=== PATIENT | male | born 1950 | race Caucasian/White ===

== ENCOUNTER 2018-01-23 19:58 | Inpatient (IN) ==
[2018-01-23 20:29] LABS: Baso % (Auto) 0.2 % (0.0-2.0); Eos % (Auto) 0.1 % (0.0-4.0); Hematocrit 46.5 % (39.0-51.0); Hemoglobin 16.2 gm/dL (13.0-17.0); Lymph # (Auto) 0.7 th/mm3 (1.0-4.8); Lymph % (Auto) 6.8 % (9.0-44.0); Mean Corpuscular HGB Conc 34.8 % (32.0-36.0); Mean Corpuscular Hemoglobin 29.9 pg (27.0-34.0); Mean Corpuscular Volume 85.8 fL (80.0-100.0); Mean Platelet Volume 9.3 fL (7.0-11.0); Mono # (Auto) 1.7 th/mm3 (0.0-0.9); Mono % (Auto) 16.3 % (0.0-8.0); Neut # (Auto) 7.9 th/mm3 (1.8-7.7); Neut % (Auto) 76.6 % (16.0-70.0); Platelet Count 408 th/mm3 (150-450); Red Blood Count 5.42 mil/mm3 (4.50-5.90); Red Cell Distribution Width 13.9 % (11.6-17.2); White Blood Count 10.3 th/mm3 (4.0-11.0)
[2018-01-23 20:38] LABS: Chloride 96 meq/L (98-107); Potassium 3.8 meq/L (3.5-5.1); Sodium 132 meq/L (136-145)
[2018-01-23 20:43] LABS: Activated Partial Thrombo Time 29.9 sec (24.3-30.1); Albumin 2.9 g/dL (3.4-5.0); Anion Gap 16 meq/L (5-15); Calcium 9.1 mg/dL (8.5-10.1); Carbon Dioxide 19.6 meq/L (21.0-32.0); Glucose,Random 173 mg/dL (74-106); INR 1.2 Ratio; Lipase 92 U/L (73-393); Prothrombin Time 12.5 sec (9.8-11.6)
[2018-01-23 20:44] LABS: Blood Urea Nitrogen 66 mg/dL (7-18)
[2018-01-23 20:46] LABS: Alanine Aminotransferase 12 U/L (12-78); Aspartate Aminotransferase 9 U/L (15-37); Glomerular Filtration Rate 17 mL/min (>89)
--- NOTE | 2018-01-23 20:47 | ED ---
HPI General Chief Complaint: Abdominal Pain Stated Complaint: Abd Pain Source: patient Mode of arrival: ambulatory Limitations: no limitations History of Present Illness HPI narrative: 67 years old male complains of abdominal pain, nausea vomiting diarrhea. Patient has history of Crohn's disease. Patient states that has frequent flareup of Crohn's disease. Patient has been seen by Dr. Hong colorectal surgeon for that. Patient states that he started having abdominal pain with nausea vomiting diarrhea a week ago. Patient states the symptoms lasted for about 2-3 days and resolved completely. Patient started having abdominal pain with nausea vomiting diarrhea again since last night. Patient denies any poor appetite. Patient denies any fever chills. Patient states the pain and cramping pain diffuse over the abdomen mostly in the lower abdomen. Patient states the pain started on the lower abdomen with radiation to the upper abdomen. Patient denies any blood or mucus in the stool. Patient denies any back pain. On a scale of 1-10 the pain is 8.Patient states that he was on prednisone and Asacol in the past. MD complaint: abdominal pain Onset (ago): day(s) Pain Consistency: constant Location: diffuse Severity: moderate Severity scale (1-10): 8 Quality: cramping Radiation: epigastric Migration to: epigastric Relieving factors: nothing Exacerbating factors: nothing Associated symptoms: nausea, vomiting and diarrhea Related Data Home Medications Medication Instructions Recorded Confirmed No Known Home Medications 01/23/18 01/23/18 Allergies Allergy/AdvReac Type Severity Reaction Status Date / Time No Known Allergies Allergy Unverified 01/23/18 20:09 Review of Systems Except as stated in HPI: all other systems reviewed are negative [facility] Medical History Medical History Crohn disease (Acute) Surgical History Surgical History No history of previous surgery (Acute) Family History Family History Other COPD (chronic obstructive pulmonary disease) Family history of breast cancer Social History Social History Substance History: Past History (dui) Second Hand Smoke Exposure: No Smoking Status: Current some day smoker Tobacco Type: Cigars How Often Do You Have a Drink Containing Alcohol: 2 to 3 times a week Recent Travel in [facility] within the Last 8 Weeks: No Recent Out of Country Travel within the Last 8 Weeks: No Immunization History Tetanus Immunization: >5 Years Hx Influenza Vaccine This Season: No Exam Narrative Exam Narrative: GENERAL: Well-nourished, well-developed patient. SKIN: Focused skin assessment warm/dry. HEAD: Normocephalic. EYES: No scleral icterus. No injection or drainage. NECK: Supple, trachea midline. No JVD or lymphadenopathy. CARDIOVASCULAR: Regular rate and rhythm without murmurs, gallops, or rubs. RESPIRATORY: Breath sounds equal bilaterally. No accessory muscle use. GASTROINTESTINAL: Abdomen soft, nondistended. Patient has moderate diffuse tenderness over the abdomen. No rebound tenderness. No mass. MUSCULOSKELETAL: No cyanosis, or edema. BACK: Nontender without obvious deformity. No CVA tenderness. Course Initial Documented Vital Signs Temperature 97.4 F L 01/23/18 20:01 Pulse Rate 96 H 01/23/18 20:01 Respiratory Rate 16 01/23/18 20:01 Blood Pressure 116/67 01/23/18 20:01 Pulse Oximetry 98 01/23/18 20:01 Last Documented Vital Signs Temperature 96.3 F L 01/24/18 16:00 Pulse Rate 71 01/24/18 16:00 Respiratory Rate 16 01/24/18 16:00 Blood Pressure 110/65 01/24/18 16:00 Pulse Oximetry 98 01/24/18 16:00 Medical Decision Making [facility] Narrative Medical decision making narrative: 67 years old male with low abdominal pain with radiation to the upper abdomen. History of Crohn's disease. Patient also has nausea vomiting diarrhea with that. Normal saline solution 1 25 cc an hour. EMS was called. Patient was hypotensive. Patient was given IV fluid with good results. Normal saline solution 1 L IV bolus. Pepcid 20 mg IV. Zofran 4 mg ODT. Differential Diagnosis Differential Diagnosis: Differential diagnosis including acute exacerbation Crohn's disease, colitis, UTI, pyelonephritis, nephrolithiasis. Lab Data Result diagrams: 01/24/18 05:40 01/24/18 05:40 Lab Results 01/23/18 01/23/18 01/23/18 Range/Units 20:15 20:15 20:15 CBC w Diff Auto diff final WBC 10.3 (4.0-11.0) th/mm3 RBC 5.42 (4.50-5.90) mil/mm3 Hgb 16.2 (13.0-17.0) gm/dL Hct 46.5 (39.0-51.0) % MCV 85.8 (80.0-100.0) fL MCH 29.9 (27.0-34.0) pg MCHC 34.8 (32.0-36.0) % RDW 13.9 (11.6-17.2) % Plt Count 408 (150-450) th/mm3 MPV 9.3 (7.0-11.0) fL Neut % (Auto) 76.6 H (16.0-70.0) % Lymph % (Auto) 6.8 L (9.0-44.0) % [place] % (Auto) 16.3 H (0.0-8.0) % Eos % (Auto) 0.1 (0.0-4.0) % Baso % (Auto) 0.2 (0.0-2.0) % Neut # (Auto) 7.9 H (1.8-7.7) th/mm3 Lymph # (Auto) 0.7 L (1.0-4.8) th/mm3 [place] # (Auto) 1.7 H (0.0-0.9) th/mm3 Eos # (Auto) 0.0 (0.0-0.4) th/mm3 Baso # (Auto) 0.0 (0.0-0.2) th/mm3 WBC Differential . PT 12.5 H (9.8-11.6) sec INR 1.2 Ratio APTT 29.9 (24.3-30.1) sec Sodium 132 L (136-145) meq/L Potassium 3.8 (3.5-5.1) meq/L Chloride 96 L (98-107) meq/L Carbon Dioxide 19.6 L (21.0-32.0) meq/L Anion Gap 16 H (5-15) meq/L BUN 66 H (7-18) mg/dL Creatinine 3.70 H (0.60-1.30) mg/dL Estimated GFR 17 L (>89) mL/min Random Glucose 173 H (74-106) mg/dL Calcium 9.1 (8.5-10.1) mg/dL Total Bilirubin 0.6 (0.2-1.0) mg/dL AST 9 L (15-37) U/L ALT 12 (12-78) U/L Alkaline Phosphatase 87 (45-117) U/L Total Protein 8.4 H (6.4-8.2) g/dL Albumin 2.9 L (3.4-5.0) g/dL Lipase 92 (73-393) U/L Urine Color (Yellw/Straw) Urine Clarity (Clear) Urine pH (5.0-8.5) Ur Specific Marshall (1.002-1.035) Urine Protein (Neg-Trace) mg/dL Urine Glucose (UA) (Negative) mg/dL Urine Ketones (Negative) mg/dL Urine Occult Blood (Negative) Urine Nitrate (Negative) Urine Bilirubin (Negative) Urine Urobilinogen (Less than 2) mg/dL Ur Leukocyte Esterase (Negative) Urine RBC (0-3) /hpf Urine WBC (0-5) /hpf Ur Squamous Epith Cells (0-5) /hpf Urine Bacteria (None) /hpf Micro UA Comment Urine Culture Comments 01/24/18 01/24/18 01/24/18 Range/Units 03:00 05:40 05:40 CBC w Diff Auto diff final WBC 12.2 H (4.0-11.0) th/mm3 RBC 5.26 (4.50-5.90) mil/mm3 Hgb 15.5 (13.0-17.0) gm/dL Hct 46.0 (39.0-51.0) % MCV 87.6 (80.0-100.0) fL MCH 29.4 (27.0-34.0) pg MCHC 33.6 (32.0-36.0) % RDW 13.5 (11.6-17.2) % Plt Count 419 (150-450) th/mm3 MPV 8.8 (7.0-11.0) fL Neut % (Auto) 81.6 H (16.0-70.0) % Lymph % (Auto) 7.9 L (9.0-44.0) % [place] % (Auto) 9.5 H (0.0-8.0) % Eos % (Auto) 0.1 (0.0-4.0) % Baso % (Auto) 0.9 (0.0-2.0) % Neut # (Auto) 9.9 H (1.8-7.7) th/mm3 Lymph # (Auto) 1.0 (1.0-4.8) th/mm3 [place] # (Auto) 1.2 H (0.0-0.9) th/mm3 Eos # (Auto) 0.0 (0.0-0.4) th/mm3 Baso # (Auto) 0.1 (0.0-0.2) th/mm3 WBC Differential . PT (9.8-11.6) sec INR Ratio APTT (24.3-30.1) sec Sodium 132 L (136-145) meq/L Potassium 3.9 (3.5-5.1) meq/L Chloride 96 L (98-107) meq/L Carbon Dioxide 24.2 (21.0-32.0) meq/L Anion Gap 12 (5-15) meq/L BUN 69 H (7-18) mg/dL Creatinine 3.70 H (0.60-1.30) mg/dL Estimated GFR 17 L (>89) mL/min Random Glucose 119 H (74-106) mg/dL Calcium 9.2 (8.5-10.1) mg/dL Total Bilirubin 0.4 (0.2-1.0) mg/dL AST 9 L (15-37) U/L ALT 11 L (12-78) U/L Alkaline Phosphatase 88 (45-117) U/L Total Protein 8.5 H (6.4-8.2) g/dL Albumin 3.0 L (3.4-5.0) g/dL Lipase (73-393) U/L Urine Color Sonia H (Yellw/Straw) Urine Clarity Slightly cloudy (Clear) Urine pH 5.0 (5.0-8.5) Ur Specific [place] Greater/equal 1.030 (1.002-1.035) Urine Protein 30 H (Neg-Trace) mg/dL Urine Glucose (UA) Negative (Negative) mg/dL Urine Ketones Trace (Negative) mg/dL Urine Occult Blood Negative (Negative) Urine Nitrate Negative (Negative) Urine Bilirubin Negative (Negative) Urine Urobilinogen 0.2 (Less than 2) mg/dL Ur Leukocyte Esterase Negative (Negative) Urine RBC 0-3 (0-3) /hpf Urine WBC 5-8 H (0-5) /hpf Ur Squamous Epith Cells 0-5 (0-5) /hpf Urine Bacteria Occasional H (None) /hpf Micro UA Comment Culture not ind Urine Culture Comments Culture not ind Imaging Data Attestation: I personally reviewed and interpreted this imaging study as follows : Radiologist's impression: ITS Impressions Abdomen/Pelvis CT 01/23/18 20:12 CONCLUSION: 1. 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 The largest nodular mass measures 5.5 x 2.0 cm and is located centrally. 2. Evidence of possible circumferential mass in the region of the cecum raising the possibility of colonic neoplasm. Colonoscopy is recommended for further evaluation of this finding. 3. Evidence of diffuse colonic wall thickening with loss of haustrations suggesting probable chronic colitis related to inflammatory bowel disease. Differential diagnosis includes ulcerative colitis and Crohn's disease. 4. 1.6 cm right renal cyst. 5. Degenerative changes and scoliosis of the thoracolumbar spine. Discharge Plan Discharge Disposition Patient Disposition: 30 Still Patient Discharge Details Discharge Problem: Colonic mass, Acute kidney injury, Exacerbation of Crohn's disease Physicians Team ED Provider: Vignesh Bass Primary Care Provider: Primary Care Shari Benavides Attending Provider: Katrin Mireles Discharge Interventions Interventions: ED Discharge Assessment Last Done: 01/24/18 02:50 Vital Signs Last Done: 01/24/18 02:50 Status ED Status: Left Department Discharge Information Discharge Date/Time: 01/24/18 02:50
[2018-01-23 20:48] LABS: Total Protein 8.4 g/dL (6.4-8.2)
[2018-01-23 20:49] LABS: Alkaline Phosphatase 87 U/L (45-117)
[2018-01-24] MEDS ORDERED: Acetaminophen 325 MG Tablet PO PRN (00:32)
[2018-01-24] MEDS ORDERED: Bisacodyl 10 MG Supp RECTAL PRN (00:32)
[2018-01-24] MEDS ORDERED: Morphine Sulfate Inj 2 MG/ML Vial IV.PUSH PRN (00:34)
[2018-01-24 03:25] LABS: Clarity,Urine Slightly Cloudy (Clear); Glucose,Urine (UA) Negative (Negative); Leukocyte Esterase,Urine Negative (Negative); Nitrite,Urine Negative (Negative); Specific Gravity,Urine Greater/Equal 1.030 (1.002-1.035); Urobilinogen,Urine 0.2 mg/dL (Less than 2)
[2018-01-24 03:26] LABS: Bilirubin,Urine Negative (Negative); Color,Urine Amber (Yellw/Straw)
[2018-01-24 03:29] LABS: Bacteria,Urine Occasional /hpf; RBC,Urine 0-3 /hpf (0-3); Squamous Epithelial Cell,Urine 0-5 /hpf (0-5)
[2018-01-24] MEDS: Sod Chloride 0.9% Inj 1,000 ML IV.CONT SCH ×3 (03:33→21:25)
[2018-01-24 05:56] LABS: Baso # (Auto) 0.1 th/mm3 (0.0-0.2); Baso % (Auto) 0.9 % (0.0-2.0); Eos % (Auto) 0.1 % (0.0-4.0); Hemoglobin 15.5 gm/dL (13.0-17.0); Lymph % (Auto) 7.9 % (9.0-44.0); Mean Corpuscular HGB Conc 33.6 % (32.0-36.0); Mean Corpuscular Hemoglobin 29.4 pg (27.0-34.0); Mean Corpuscular Volume 87.6 fL (80.0-100.0); Mean Platelet Volume 8.8 fL (7.0-11.0); Mono # (Auto) 1.2 th/mm3 (0.0-0.9); Mono % (Auto) 9.5 % (0.0-8.0); Neut # (Auto) 9.9 th/mm3 (1.8-7.7); Neut % (Auto) 81.6 % (16.0-70.0); Platelet Count 419 th/mm3 (150-450); Red Blood Count 5.26 mil/mm3 (4.50-5.90); Red Cell Distribution Width 13.5 % (11.6-17.2); White Blood Count 12.2 th/mm3 (4.0-11.0)
[2018-01-24 06:03] LABS: Chloride 96 meq/L (98-107); Potassium 3.9 meq/L (3.5-5.1); Sodium 132 meq/L (136-145)
[2018-01-24 06:06] LABS: Anion Gap 12 meq/L (5-15); Calcium 9.2 mg/dL (8.5-10.1); Carbon Dioxide 24.2 meq/L (21.0-32.0)
[2018-01-24 06:07] LABS: Blood Urea Nitrogen 69 mg/dL (7-18); Glucose,Random 119 mg/dL (74-106)
[2018-01-24 06:09] LABS: Alanine Aminotransferase 11 U/L (12-78)
[2018-01-24 06:10] LABS: Aspartate Aminotransferase 9 U/L (15-37); Glomerular Filtration Rate 17 mL/min (>89)
[2018-01-24 06:11] LABS: Total Protein 8.5 g/dL (6.4-8.2)
[2018-01-24 06:12] LABS: Alkaline Phosphatase 88 U/L (45-117)
[2018-01-24] MEDS: Senna/Docusate Sodium 8.6/50 MG Tablet PO SCH ×2 (09:48→21:29)
--- NOTE | 2018-01-24 11:59 | MB ---
cc: Shauna De Anda MD DATE: 01/24/2018 REASON FOR CONSULTATION: Elevated BUN and creatinine, for evaluation. HISTORY OF PRESENT ILLNESS: This is a 67-year-old male with a past medical history of Crohn's disease who came to the hospital complaining of nausea, vomiting, abdominal pain and loose bowel motion. I was called to see the patient because of elevated BUN and creatinine. The patient was found to have creatinine of 3.7. This was yesterday evening and this morning it is the same at 3.7. Previously it looked like he has a creatinine of 0.98, and this was in 2013. The patient has no labs in between according to him, and he has this history of Crohn's disease and off and on having loose bowel motions. He has been following with Dr. Hong, colorectal surgeon, for that and he was supposed to go for colonoscopy. According to the patient, he had some polyps in the colon. He has loose bowel motions off and on, usually greenish in color. There is no blood in the stool. There is no history of melena. He has nausea, vomiting and not eating well for the last 1 week or so before he came to the hospital and according to the patient, his urine output has decreased and he has been passing very concentrated small amount of urine for the last 1 week. There is no history of fever. He has been taking nonsteroidal anti-inflammatory drugs off and on for joint pain and the last time he took was almost 2 months ago. The patient was taking prednisone and Asacol in the past. MEDICAL HISTORY: Crohn's disease. PAST SURGICAL HISTORY: History of colonoscopy in the past. REVIEW OF SYSTEMS: Denies any history of fever. No headache, dizziness. He has nausea, vomiting, abdominal pain, which is cramping-like and associated with loose bowel motions. There is no history of blood in the stool. He has greenish stool and 5-6 per day. He has no dysuria or hematuria, but did notice that the urine output has decreased and the urine is very concentrated. There is no history of fever. He has been taking nonsteroidal anti-inflammatory drugs off and on for joint pain and the last time he took was almost 2 months ago. SOCIAL HISTORY: The patient is a chronic smoker, smokes cigars and drinks alcohol 2-3 times per week. FAMILY HISTORY: Noncontributory. ALLERGIES: HE HAS NO KNOWN DRUG ALLERGIES. MEDICATIONS: Currently, he is on the following medications: 1. Tylenol p.r.n. 2. Bostwick p.r.n. 3. Dulcolax p.r.n. 4. Reglan p.r.n. 5. Morphine p.r.n. 6. Beatriz-Colace p.r.n. 7. Senokot p.r.n. 8. Normal saline he is getting at 100 an hour. PHYSICAL EXAMINATION: GENERAL: Awake, alert. He is not in acute distress. VITAL SIGNS: His last blood pressure was 111/72, temperature is 97.7. His blood pressure has been in the normal range. There is no documented significant hypotensive episode. Oxygen saturation on room air is 98%. HEENT: Pupils are mid-constricted. Nonicteric sclerae. Conjunctivae are normal. NECK: Supple. JVD is not elevated. LUNGS: The patient has bilateral equal air entry with occasional wheezing. HEART: S1, S2. Regular rate and rhythm. ABDOMEN: Soft and lax. There is some distention. There is no definite tenderness. Bowel sounds positive. EXTREMITIES: There is no pedal edema. LABORATORY DATA: WBC count is 12.2, hemoglobin is 15.5, platelet count of 419, neutrophils 81.6%. INR is 1.2. Sodium 132, potassium 3.9, chloride 96, bicarbonate 24.2, BUN 69, creatinine 3.7. AST is 9, ALT is 11, alkaline phosphatase 88, total protein is 8.5, albumin is 3.0. Urinalysis showing protein of 30. IMAGING STUDIES: A CT scan of the abdomen and pelvis was done which shows nodularity throughout the omentum with possibility of metastasis. The larger nodular mass is 5.5 x 2 cm and evidence of possible circumferential mass in the region of the cecum, possibility of colonic neoplasm. Diffuse colonic wall thickening. Degenerative changes in the thoracolumbar spine. The kidneys are reported normal in size and shape. No evidence of hydronephrosis. There is a 1.6 cm right renal cyst. Adrenal glands unremarkable. ASSESSMENT AND PLAN: 1. Acute kidney injury. 2. Dehydration. 3. Crohn's disease. 4. Possibility of a colonic neoplasm with metastasis. 5. Degenerative changes of the thoracolumbar spine. The patient has very high BUN and creatinine. The differential diagnosis for acute kidney injury will be either dehydration or possibility of acute tubular necrosis. I will check the urine sodium and osmolality and I agree with continuing IV fluid. GI has been consulted for more workup. The patient was told to avoid nonsteroid anti-inflammatory drugs. Thank you for the consultation and I will follow the patient while he is in the hospital. MD MARSHALL Hyde/JAMAR , 11:33 AM , 11:57 AM
--- NOTE | 2018-01-24 13:43 | P.HPIM ---
History of Present Illness Primary Care Physician: No Primary Care Physician Chief Complaint: Abdominal pain and weight loss History of Present Illness: Patient is a 67-year-old gentleman with a history of Crohn's disease which has been in remission. He presents with 2 weeks of malaise, associated diarrhea nausea and vomiting. He had poor oral intake and noted about a 5-10 pound weight loss in the last 2 weeks with associated abdominal bloating, increased nausea vomiting and belching. He notes no bloody diarrhea. He has not had any issues with the Crohn's in about 3 years although he follows up with his colorectal team sporadically due to remission of disease. He was going to see his surgeon but felt severely dehydrated and dizzy and confused and came to the emergency room by ambulance yesterday. He is found to have acute kidney injury , acidosis and was given hydration early. 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 This is all new for the patient he is admitted to the hospital for further evaluation and treat - Diagnosis (1) Abdominal pain (2) CD (Crohn's disease) (3) YVROSE (acute kidney injury) (4) Dehydration - Inpatient Certification If this patient has been admitted as an Inpatient: I certify that the inpatient services were ordered in accordance with Medicare regulations governing the order. This includes certification that hospital inpatient services are reasonable and necessary and in the case of services not specified as inpatient-only under 42 CFR 419.22(n), that they are appropriately provided as inpatient services in accordance to with the 2-midnight benchmark under 43 CFR 412.3(e) Estimated Total Length of Stay (Days): 2 Plans for Post Hospital Care: Not yet determined Review of Systems All other systems reviewed negative except as stated in HPI Constitutional: Reports anorexia, Reports fatigue, Reports malaise, Reports weight loss Eyes: Denies blind spots, Denies blurry vision, Denies bulging eyes, Denies change in vision, Denies double vision, Denies discharge, Denies dry eyes, Denies floaters, Denies irritation, Denies itchy eyes, Denies loss of vision, Denies pain, Denies requires corrective lenses, Denies sensitivity to light, Denies other Ears, Nose, Mouth, and Throat: Denies abnormal hearing, Denies bleeding gums, Denies bad breath, Denies change in voice, Denies dental pain, Denies difficulty swallowing, Denies dizziness, Denies dry mouth, Denies ear discharge , Denies ear pain, Denies facial pain, Denies headache(s), Denies hearing loss, Denies hoarseness, Denies lip swelling, Denies nosebleed, Denies mouth lesions, Denies mouth pain, Denies nasal congestion, Denies nasal discharge, Denies nasal obstruction, Denies nasal trauma, Denies neck lump, Denies neck pain, Denies nose pain, Denies pain with swallowing, Denies poor balance, Denies post nasal drip, Denies ringing in the ears, Denies sinus pain, Denies sinus pressure , Denies sore throat, Denies throat swelling, Denies tongue swelling, Denies other Cardiovascular: Denies chest pain, Denies chest pain at rest, Denies chest pain with activity, Denies excessive sweating, Denies fainting, Denies fast heart rate, Denies foot swelling, Denies generalized swelling, Denies irregular heart rhythm, Denies leg pain with activity, Denies leg sores, Denies leg swelling, Denies lightheadedness, Denies radiating jaw, neck or arm pain, Denies rapid, pounding, or irregular heartbeat, Denies shortness of breath, Denies shortness of breath with activity, Denies shortness of breath when lying down, Denies shortness of breath causing sudden awakening, Denies slow heart rate, Denies other Respiratory: Denies change in phlegm color, Denies chest congestion, Denies cough, Denies coughing up blood, Denies excessive phlegm production, Denies pain on inspiration, Denies pain with cough, Denies shortness of breath, Denies shortness of breath with activity, Denies snoring, Denies stridor, Denies wheezing, Denies other Gastrointestinal: Reports abdominal pain, Reports belching, Reports change in bowel habits, Reports constant urge to pass stool, Reports feeling full early, Reports heartburn, Reports incontinent of stools Genitourinary: Denies blood in semen, Denies blood in urine, Denies decreased urination, Denies difficulty urinating, Denies difficulty with ejaculations, Denies erectile dysfunction, Denies genital lesions, Denies genital pain, Denies painful urination, Denies side pain, Denies frequent nighttime urination , Denies painful ejaculations, Denies penile discharge, Denies scrotal swelling , Denies testicle lump, Denies testicle pain, Denies urinary frequency, Denies urinary hesitancy, Denies urinary incontinence, Denies urinary urgency, Denies other Musculoskeletal: Denies abnormal walking, Denies back pain, Denies body aches, Denies decreased muscle mass, Denies deformity, Denies joint pain, Denies joint swelling, Denies limited joint movement, Denies loss of height, Denies muscle cramps, Denies muscle weakness, Denies neck pain, Denies numbness, Denies radiating pain into limb, Denies stiffness, Denies tingling, Denies other Skin/Breast: Denies acne, Denies bleeding lesions, Denies boil, Denies breast swelling, Denies breast skin changes, Denies breast pain, Denies breast lump, Denies change in breast shape, Denies change in hair, Denies change in skin color, Denies changing lesions, Denies dry skin, Denies excessive hair growth, Denies hair loss, Denies itching, Denies lesions, Denies nail changes, Denies new lesions, Denies nipple discharge, Denies non-healing lesions, Denies redness , Denies sensitivity to light, Denies rash, Denies skin pain, Denies skin ulcer , Denies sores, Denies stretch leger, Denies unusual bruising, Denies wounds, Denies yellowing of the skin, Denies other Neurologic: Denies abnormal hearing, Denies abnormal movements, Denies abnormal speech, Denies abnormal walking, Denies behavioral changes, Denies burning sensations, Denies confusion, Denies dizziness, Denies fainting, Denies frequent falls, Denies headache(s), Denies lack of coordination, Denies localized weakness, Denies loss of vision, Denies memory loss, Denies numbness, Denies other visual disturbances, Denies radiating pain, Denies restless legs, Denies convulsions, Denies seizure-like activity, Denies sensory deficit, Denies tingling, Denies tingling/numbness/burning sensations, Denies tremor(s), Denies unsteadiness, Denies weakness, Denies other Psychiatric: Denies abnormal sleep pattern, Denies anxiety, Denies behavioral changes, Denies change in appetite, Denies change in sex drive, Denies confusion , Denies depression, Denies difficulty concentrating, Denies hearing things others do not hear, Denies hopelessness, Denies irritability, Denies lack of enjoyment, Denies memory loss, Denies mood swings, Denies panic attacks, Denies paranoia, Denies seeing things others do not see, Denies sensing things others do not sense, Denies tactile hallucinations, Denies thoughts of hurting/killing others, Denies thoughts of hurting/killing yourself, Denies other Endocrine: Denies cold intolerance, Denies excessive sweating, Denies flushing, Denies heat intolerance, Denies increased hunger, Denies increased thirst, Denies increased urination, Denies rapid, pounding, or irregular heartbeat, Denies other Hematologic/Lymphatic: Denies easy bleeding, Denies easy bruising, Denies enlarged lymph nodes, Denies other Allergic/Immunologic: Denies GI upset with certain foods, Denies hives, Denies itchy eyes, Denies lip swelling, Denies seasonal runny nose, Denies throat swelling, Denies tongue swelling, Denies wheezing, Denies other PMFSH - History History Provided By: Patient - Medical History Medical History: Medical History (Last Reviewed 01/24/18 @ 13:29 by Katrin Mireles MD) Crohn disease - Surgical History Surgical History: Surgical History (Last Reviewed 01/24/18 @ 13:29 by Katrin Mireles MD) No history of previous surgery - Family History Family History: Family History (Last Updated 01/24/18 @ 13:29 by Katrin Mireles MD) Other COPD (chronic obstructive pulmonary disease) Family history of breast cancer - Tobacco History Second Hand Smoke Exposure: No Tobacco Use In Past 30 Days: Yes Smoking Status: Current some day smoker Tobacco Type: Cigars - Alcohol History How Often Do You Have a Drink Containing Alcohol: 2 to 3 times a week - Substance Use History Substance History: Past History (dui) - Travel History Recent Travel in the [facility] Within the Last 8 Weeks: No Recent Travel Out of the Country Within the Last 8 Weeks: No - Immunization History Tetanus Immunization: >5 Years Hx Influenza Vaccine This Season: No Medications and Allergies Active Medications: Active Medications Acetaminophen (Tylenol) 650 mg PO Q4H PRN PRN Reason: FEVER/PAIN 1-2 Hydrocodone Bitart/Acetaminophen ([place] 10/325) 1 tab PO Q4H PRN PRN Reason: PAIN 3-5 Al Hydroxide/Mg Hydroxide (Milk Of Magnesia Liq) 30 ml PO Q12H PRN PRN Reason: Mild Constipation Bisacodyl (Dulcolax Supp) 10 mg RECTAL DAILY PRN PRN Reason: SEVERE CONSITIPATION Sodium Chloride (Ns Inj) 1,000 mls @ 100 mls/hr IV.CONT .Q10H [facility] Last Admin: 01/24/18 03:33 Dose: 100 mls/hr Metronidazole/Sodium Chloride (Flagyl 500 Mg Inj) 100 mls @ 100 mls/hr IV.SIG Q8H [place] Ciprofloxacin/Dextrose (Cipro 400 Mg/200 Ml Inj) 400 mg in 200 mls @ 200 mls/ hr IV.SIG Q12H [place] Lactulose (Lactulose Liq) 30 ml PO DAILY PRN PRN Reason: SEVERE CONSITIPATION Metoclopramide HCl (Reglan Inj) 5 mg IV.PUSH Q6HR PRN; Protocol PRN Reason: NAUSEA OR VOMITING Morphine Sulfate (Morphine Inj) 2 mg IV.PUSH Q3H PRN PRN Reason: PAIN 6-10 Senna/Docusate Sodium (Beatriz-Colace) 1 tab PO BID [facility] Last Admin: 01/24/18 09:48 Dose: Not Given Sennosides (Senokot) 17.2 mg PO Q12H PRN PRN Reason: Moderate Constipation Sodium Chloride (Ns Flush) 2 ml IV.FLUSH PRN PRN PRN Reason: FLUSH AFTER USING IV ACCESS Last Admin: 01/24/18 03:33 Dose: 2 ml Allergies Allergy/AdvReac Type Severity Reaction Status Date / Time No Known Allergies Allergy Unverified 01/23/18 20:09 Home Medications Medication Instructions Recorded Confirmed Type No Known Home Medications 01/23/18 01/23/18 History Exam Vital signs: Vital Signs 01/23/18 20:01 01/23/18 20:10 01/23/18 21:23 Temperature 97.4 F L Pulse Rate 96 H 96 H Respiratory Rate 16 18 Blood Pressure 116/67 116/62 Pulse Oximetry 98 95 01/24/18 01:27 01/24/18 02:50 01/24/18 03:49 Temperature 97.7 F Pulse Rate 82 80 Respiratory Rate 20 20 16 Blood Pressure 111/72 123/74 123/78 Pulse Oximetry 98 98 98 01/24/18 08:00 01/24/18 12:00 Temperature 96.2 F L 96.5 F L Pulse Rate 72 73 Respiratory Rate 16 Blood Pressure 104/56 L 139/81 Pulse Oximetry 98 98 Intake & Output 01/23/18 01/24/18 01/24/18 18:59 06:59 18:59 Intake Total 480 / 480 Output Total 800 / 800 Balance -800 / -800 480 / 480 Weight 74.6 kg Intake: Oral 480 / 480 Oral Supplement 0 / 0 Output: Urine 300 / 300 Stool 500 / 500 Other: Date of Last Bowel Movement 01/24/18 # Bowel Movements 4 - Constitutional no acute distress - Routine HEENT Exam Head: Present: normocephalic, atraumatic Eye: Present: EOMI, PERRL - Routine Neck Exam Present: supple, full ROM - Routine Cardiovascular Exam Present: RRR, S1, S2 - Routine Abdominal Exam Present: soft, tenderness, distended - Routine Extremities Exam Present: full ROM, normal capillary refill - Routine Skin Exam Present: intact - Routine Neurological Exam Present: alert, oriented X3, CN II-XII intact Results - Labs CBC & Chem 7: 01/24/18 05:40 01/24/18 05:40 Labs: Short CBC 01/23/18 01/24/18 Range/Units 20:15 05:40 WBC 10.3 12.2 H (4.0-11.0) th/mm3 Hgb 16.2 15.5 (13.0-17.0) gm/dL Hct 46.5 46.0 (39.0-51.0) % Plt Count 408 419 (150-450) th/mm3 [facility] 01/23/18 01/24/18 20:15 05:40 Sodium 132 L 132 L Potassium 3.8 3.9 Chloride 96 L 96 L Carbon Dioxide 19.6 L 24.2 BUN 66 H 69 H Creatinine 3.70 H 3.70 H Calcium 9.1 9.2 Liver Function 01/23/18 01/24/18 Range/Units 20:15 05:40 Total Bilirubin 0.6 0.4 (0.2-1.0) mg/dL AST 9 L 9 L (15-37) U/L ALT 12 11 L (12-78) U/L Alkaline Phosphatase 87 88 (45-117) U/L Albumin 2.9 L 3.0 L (3.4-5.0) g/dL Urine 01/24/18 Range/Units 03:00 Urine Color Sonia H (Yellw/Straw) Urine Clarity Slightly cloudy (Clear) Urine pH 5.0 (5.0-8.5) Ur Specific [place] Greater/equal 1.030 (1.002-1.035) Urine Protein 30 H (Neg-Trace) mg/dL Urine Glucose (UA) Negative (Negative) mg/dL - Imaging Impressions Abdomen/Pelvis CT 01/23/18 20:12 CONCLUSION: 1. 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 The largest nodular mass measures 5.5 x 2.0 cm and is located centrally. 2. Evidence of possible circumferential mass in the region of the cecum raising the possibility of colonic neoplasm. Colonoscopy is recommended for further evaluation of this finding. 3. Evidence of diffuse colonic wall thickening with loss of haustrations suggesting probable chronic colitis related to inflammatory bowel disease. Differential diagnosis includes ulcerative colitis and Crohn's disease. 4. 1.6 cm right renal cyst. 5. Degenerative changes and scoliosis of the thoracolumbar spine. Caprini VTE Risk Assessment Caprini VTE Risk Assessment: Moderate/High Risk (score >= 2) Caprini Risk Assessment Model: Point Value = 1 Point Value = 2 Point Value = 3 Point Value = 5 Age 41-60 Minor surgery BMI > 25 kg/m2 Swollen legs Varicose veins or History of unexplained or recurrent spontaneous Oral contraceptives or hormone replacement Sepsis (< 1 month) Serious lung disease, including pneumonia (< 1 month) Abnormal pulmonary function Acute myocardial infarction Congestive heart failure (< 1 month) History of inflammatory bowel disease Medical patient at bed rest Age 61-74 Arthroscopic surgery Major open surgery (> 45 min) Laparoscopic surgery (> 45 min) Malignancy Confined to bed (> 72 hours) Immobilizing plaster cast Central venous access Age >= 75 History of VTE Family history of VTE Factor V Leiden Prothrombin [id number] Lupus anticoagulant Anticardiolipin antibodies Elevated serum homocysteine Heparin-induced thrombocytopenia Other congenital or acquired thrombophilia Stroke (< 1 month) Elective arthroplasty Hip, pelvis, or leg fracture Acute spinal cord injury (< 1 month) Prophylaxis Regimen: Total Risk Factor Score Risk Level Prophylaxis Regimen 0-1 Low Early ambulation 2 Moderate Order ONE of the following: *Sequential Compression Device (SCD) *Heparin 5000 units SQ BID 3-4 Higher Order ONE of the following medications: *Heparin 5000 units SQ TID *Enoxaparin/Lovenox 40 mg SQ daily (WT < 150 kg, CrCl > 30 mL/min) *Enoxaparin/Lovenox 30 mg SQ daily (WT < 150 kg, CrCl > 10-29 mL/min) *Enoxaparin/Lovenox 30 mg SQ BID (WT < 150 kg, CrCl > 30 mL/min) AND/OR *Sequential Compression Device (SCD) 5 or more Highest Order ONE of the following medications: *Heparin 5000 units SQ TID (Preferred with Epidurals) *Enoxaparin/Lovenox 40 mg SQ daily (WT < 150 kg, CrCl > 30 mL/min) *Enoxaparin/Lovenox 30 mg SQ daily (WT < 150 kg, CrCl > 10-29 mL/min) *Enoxaparin/Lovenox 30 mg SQ BID (WT < 150 kg, CrCl > 30 mL/min) AND *Sequential Compression Device (SCD) Assessment and Plan - Assessment (1) Abdominal pain Code(s): R10.9 - Unspecified abdominal pain Status: Acute Plan: Likely due to colonic malignancy with evidence of metastases. Continue with IV hydration and supportive care Colorectal surgery follow-up (patient does follow with Dr. Hong. Follow-up stool studies and empiric Cipro and Flagyl (2) CD (Crohn's disease) Code(s): K50.90 - Crohn's disease, unspecified, without complications Status: Chronic Plan: Currently stable per patient and his last flare was over 3 years ago. Continue to follow with colorectal (3) YVROSE (acute kidney injury) Code(s): N17.9 - Acute kidney failure, unspecified Status: Acute Plan: Patient with acute metabolic acidosis secondary to acute kidney injury, likely due to dehydration No follow-up appreciated. Continue hydration, acidosis appears to have corrected Follow-up labs, avoid nephrotoxic injuries (4) Dehydration Code(s): E86.0 - Dehydration Status: Acute Plan: Continue IV hydration and follow-up electrolytes - Plan Code Status: Worrisome due to patient's hydration status With electrolyte management and his acidosis is actually improved. Nephrology consult appreciated H&P: Quality - VTE Deep Vein Thrombosis/Pulmonary Embolism Present on Admission: No
[2018-01-24] MEDS: Ciprofloxacin 400 MG/200 ML 400 MG/200 ML PIGGYBACK IV.SIG SCH (15:02)
[2018-01-24] MEDS: Heparin - SQ 10,000 UNITS/ML Vial SQ SCH (21:27)
[2018-01-25] MEDS: Ciprofloxacin 400 MG/200 ML 400 MG/200 ML PIGGYBACK IV.SIG SCH ×2 (01:49→14:26)
[2018-01-25] MEDS: Sod Chloride 0.9% Inj 1,000 ML IV.CONT SCH ×2 (06:45→19:01)
[2018-01-25] MEDS: Heparin - SQ 10,000 UNITS/ML Vial SQ SCH ×2 (10:04→22:11)
[2018-01-25] MEDS: Senna/Docusate Sodium 8.6/50 MG Tablet PO SCH ×2 (10:06→22:11)
--- NOTE | 2018-01-25 11:17 | P.PNIM ---
Subjective Interval history: Patient seen and evaluated today in follow-up for abdominal pain which is improved. Still with loose stool. C. difficile is pending. No fevers. Care plan discussed with patient. Tolerating current antibiotics and diet without difficulty. Physical Exam Vital signs: Vital Signs 01/24/18 12:00 01/24/18 14:00 01/24/18 16:00 Temperature 96.5 F L 96.3 F L Pulse Rate 73 71 Respiratory Rate 16 Blood Pressure 139/81 110/65 Pulse Oximetry 98 99 98 01/24/18 20:00 01/24/18 20:46 01/25/18 00:00 Temperature 95.8 F L 98.0 F Pulse Rate 72 70 Respiratory Rate 18 18 Blood Pressure 130/75 112/68 Pulse Oximetry 97 98 97 01/25/18 08:00 Temperature 96.3 F L Pulse Rate 83 Respiratory Rate 16 Blood Pressure 134/84 Pulse Oximetry 96 Intake & Output 01/24/18 01/25/18 01/25/18 18:59 06:59 18:59 Intake Total 2059 / 2059 2740 / 2740 Output Total 750 / 750 Balance 2059 / 2059 1989 / 1989 Weight 74.6 kg Intake: IV 1100 / 1100 2500 / 2500 NS Inj 1,000 ML @ 100 mls/hr IV 1000 / 1000 2000 / 1999 .CONT .Q10H [place] Rx#:[id number] Cipro 400 MG/200 ML Inj 400 mg 400 / 400 In 200 ml @ 200 mls/hr IV.SIG Q12H [place] Rx#:[id number] Flagyl 500 MG Inj 100 ML @ 100 100 / 100 100 / 100 mls/hr IV.SIG Q8H [place] Rx#: [id number] Oral 960 / 960 240 / 240 Oral Supplement 0 / 0 Output: Urine 750 / 750 Other: # Voids 7 Date of Last Bowel Movement 01/24/18 # Bowel Movements 4 - Constitutional no acute distress - Routine HEENT Exam Head: Present: normocephalic, atraumatic Eye: Present: EOMI, PERRL ENT: Present: mucous membranes moist - Routine Neck Exam Present: supple, full ROM - Routine Respiratory Exam Present: CTA bilaterally - Routine Cardiovascular Exam Present: RRR, S1, S2 - Routine Abdominal Exam Present: soft, normoactive bowel sounds - Routine Neurological Exam Present: alert, oriented X3, CN II-XII intact Results - Labs CBC & Chem 7: 01/24/18 05:40 01/24/18 05:40 Laboratory Results - last 24 hr 01/24/18 01/24/18 22:50 22:50 Urine Osmolality 501 Ur Random Sodium 16 Assessment and Plan - Assessment (1) Abdominal pain Code(s): R10.9 - Unspecified abdominal pain Status: Acute Plan: Likely due to colonic malignancy with evidence of metastases. Continue with IV hydration and supportive care Colorectal surgery follow-up (patient does follow with Dr. Hong. I called directly today as consult was not able to go through the new system.) Follow- up stool studies and empiric Cipro and Flagyl c diff pending (2) CD (Crohn's disease) Code(s): K50.90 - Crohn's disease, unspecified, without complications Status: Chronic Plan: Currently stable per patient and his last flare was over 3 years ago. Continue to follow with colorectal (3) YVROSE (acute kidney injury) Code(s): N17.9 - Acute kidney failure, unspecified Status: Acute Plan: Patient with acute metabolic acidosis secondary to acute kidney injury, likely due to dehydration renal follow-up appreciated. Continue iv hydration, acidosis appears to have corrected Follow-up labs, avoid nephrotoxic injuries (4) Dehydration Code(s): E86.0 - Dehydration Status: Acute Plan: Continue IV hydration and follow-up electrolytes - Plan Discharge Planning: If no inpatient workup will discuss with colorectal surgery for discharge planning outpatient follow-up
[2018-01-25] MEDS ORDERED: Magnesium Citrate Liq 300 ML Bottle PO ONE (18:15)
--- NOTE | 2018-01-25 22:40 | MB ---
cc: Zelalem Alexander MD, Andrew H MD DATE: 01/25/2018 REASON FOR CONSULTATION: Crohn's disease, possible abdominal mass and carcinomatosis. HISTORY OF PRESENT ILLNESS: Mr. Stapleton is a 67-year-old male known to Dr. Hong in the past with a history of Crohn's disease. He has very little medical followup for the last several years and has been off all medications. He presented to the emergency room with about a 2-week history of anorexia, malaise, nausea and vomiting. He always has loose stools he claims up to about 10 times a day. His oral intake was very poor and he was able to take very little even liquids by mouth. Reports about a 10-pound weight loss in 2 weeks with abdominal distention. Denies any fever. No rectal bleeding. Denies any melena. The patient was trying to get into the office for outpatient followup, but was quite lethargic and somewhat dizzy. He called [facility] and came to the emergency room by ambulance. In the emergency room, he was found to be significantly dehydrated with elevation of his BUN and creatinine, acidosis. 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 No signs of ascites. The patient was admitted for IV fluids and extensive workup of multiple medical problems. Please see the admitting history and physical for complete past medical and surgical history. PERTINENT PHYSICAL: GENERAL: A very cachectic older male in no acute distress. HEENT: Remarkable for pink but very dry membranes. Nonicteric sclerae. NECK: Stiff without adenopathy. CHEST: Coarse bilaterally. Clear anteriorly. HEART: Had a slight tachycardia. ABDOMEN: Soft, doughy, slightly tender in the right side but no real obvious masses. No rebound or guarding. No fluid is noted. EXTREMITIES: Show no cyanosis or clubbing. 1+ pedal edema. LABORATORY STUDIES: Hemoglobin was down to 15.5, platelet count was 418,000. Coagulation studies normal. Chemistries show a BUN of 69 with a creatinine of 3.7. Normal liver function tests. IMAGING STUDIES: A CT scan was reviewed showing nodularity in the omentum consistent with omental metastasis with possible mass at the region of the cecum, concern for possible cecal neoplasm. The colonic wall was diffusely thickened distally, also consistent with a history of longstanding colitis. ASSESSMENT AND PLAN: A 67-year-old male with history of Crohn's disease, who presents with severe dehydration, longstanding diarrhea, very poor followup and findings consistent with possible cecal mass and omental metastasis. The patient has not had a drop in his BUN and creatinine despite very gentle fluid hydration. Would increase his hydration and have him undergo a gentle bowel prep in preparation for a colonic evaluation to see the extent of his colonic disease as well as a possible mass at the cecum. Risks, benefits and alternatives were discussed at great length with the patient. We will try to set up as soon as possible. MD NAHUN Lopez/SA , 10:14 PM , 10:38 PM
[2018-01-26 05:11] LABS: Hemoglobin 15.5 gm/dL (13.0-17.0); Mean Corpuscular HGB Conc 33.6 % (32.0-36.0); Mean Corpuscular Hemoglobin 28.8 pg (27.0-34.0); Mean Corpuscular Volume 85.7 fL (80.0-100.0); Mean Platelet Volume 8.4 fL (7.0-11.0); Platelet Count 402 th/mm3 (150-450); Red Blood Count 5.37 mil/mm3 (4.50-5.90); Red Cell Distribution Width 14.2 % (11.6-17.2); White Blood Count 14.9 th/mm3 (4.0-11.0)
[2018-01-26 05:49] LABS: Calcium 9.5 mg/dL (8.5-10.1); Potassium 3.3 meq/L (3.5-5.1)
[2018-01-26] MEDS: Sod Chloride 0.9% Inj 1,000 ML IV.CONT SCH ×4 (07:36→21:18)
[2018-01-26] MEDS: Ciprofloxacin 400 MG/200 ML 400 MG/200 ML PIGGYBACK IV.SIG SCH ×2 (07:41→14:41)
[2018-01-26] MEDS ORDERED: Chlorhexidine Gluconate 2% 1 Pack (2 Cloths) TOPICAL SCH (07:45)
[2018-01-26] MEDS ORDERED: Metoprolol Tartrate 25 MG Tablet PO SCH (07:45)
[2018-01-26] MEDS ORDERED: Sodium Chlor 0.9% Inj 500 ML IV.SIG SCH (08:00)
[2018-01-26] MEDS: Senna/Docusate Sodium 8.6/50 MG Tablet PO SCH (09:17)
--- NOTE | 2018-01-26 09:27 | P.PN ---
Subjective Interval history: Follow-up visit Crohn's disease, increased diarrhea, nausea, vomiting, increased abdominal pain right quadrant. Patient seen and examined today. States he continues to have nausea, slight diarrhea. States he has severe tenderness to light palpation on the right upper/lower quadrant. States nausea vomiting has improved he has not eaten because he was kept n.p.o. for procedure. Denies SOB/ dyspnea. Denies chest pain, palpitations, headaches, dizziness. Denies fevers, chills. Denies dysuria. Physical Exam Vital signs: Vital Signs 01/25/18 12:00 01/25/18 16:00 01/25/18 19:58 Temperature 98.0 F 98.2 F 98.1 F Pulse Rate 75 76 82 Respiratory Rate 17 17 20 Blood Pressure 108/59 L 109/59 L 125/74 Pulse Oximetry 95 95 97 01/25/18 20:26 01/26/18 00:00 01/26/18 03:44 Temperature 98.3 F 98.2 F Pulse Rate 95 H 97 H Respiratory Rate 17 18 Blood Pressure 112/72 110/72 Pulse Oximetry 98 93 L 94 L 01/26/18 08:00 Temperature 98.0 F Pulse Rate 88 Respiratory Rate 16 Blood Pressure 123/84 Pulse Oximetry 94 L Intake & Output 01/25/18 01/26/18 01/26/18 18:59 06:59 18:59 Intake Total 2360 / 2360 1100 / 1100 200 / 200 Output Total 200 / 200 Balance 2160 / 2160 1100 / 1100 200 / 200 Weight 78 kg 79 kg Intake: IV 1400 / 1400 1100 / 1100 200 / 200 NS Inj 1,000 ML @ 150 mls/hr IV 1000 / 1000 1000 / 1000 .CONT .Q6H40M [place] Rx#: [id number] Cipro 400 MG/200 ML Inj 400 mg 200 / 200 200 / 200 In 200 ml @ 200 mls/hr IV.SIG Q12H [place] Rx#:[id number] Flagyl 500 MG Inj 100 ML @ 100 200 / 200 100 / 100 mls/hr IV.SIG Q8H [place] Rx#: [id number] Oral 960 / 960 Output: Urine 200 / 200 Other: # Voids 1 5 Date of Last Bowel Movement 01/25/18 01/26/18 01/26/18 # Bowel Movements 3 5 Weight On Admission 78 kg Narrative: GENERAL: This is a well-nourished, well-developed patient, in no apparent distress. SKIN: Warm and dry. HEENT: Normocephalic. Pupils equal round and reactive. Nose without bleeding. Airway patent. NECK: Trachea midline. No JVD. Supple. CARDIOVASCULAR: Regular rate and rhythm without murmurs, gallops, or rubs. RESPIRATORY: Clear to auscultation. Breath sounds equal bilaterally. No wheezes , rales, or rhonchi. GASTROINTESTINAL: Abdomen soft, distended. Bowel Sounds normoactive x4. Tenderness to very light palpation right quadrant. MUSCULOSKELETAL: Extremities without clubbing, cyanosis, or edema. NEUROLOGICAL: Awake and alert. Oriented to time, place, person. No focal neuro deficit. Moves all extremities. Normal speech. Results - Labs CBC & Chem 7: 01/26/18 04:33 01/26/18 04:33 Laboratory Results - last 24 hr 01/25/18 01/26/18 01/26/18 01:45 04:33 04:33 WBC 14.9 H RBC 5.37 Hgb 15.5 Hct 46.0 MCV 85.7 MCH 28.8 MCHC 33.6 RDW 14.2 Plt Count 402 MPV 8.4 Sodium 134 L Potassium 3.3 L Chloride 93 L Carbon Dioxide 28.0 Anion Gap 13 BUN 38 H Creatinine 1.28 Estimated GFR 56 L Random Glucose 131 H Calcium 9.5 Stl C.difficile Tox PCR Negative St C. 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 Continue with IV hydration and supportive care Colorectal surgery follow-up (patient does follow with Dr. Hong. I called directly today as consult was not able to go through the new system.) Follow- up stool studies and empiric Cipro and Flagyl c diff pending (2) CD (Crohn's disease) Code(s): K50.90 - Crohn's disease, unspecified, without complications Status: Chronic Plan: Currently stable per patient and his last flare was over 3 years ago. Continue to follow with colorectal (3) YVROSE (acute kidney injury) Code(s): N17.9 - Acute kidney failure, unspecified Status: Acute Plan: Patient with acute metabolic acidosis secondary to acute kidney injury, likely due to dehydration renal follow-up appreciated. Continue iv hydration, acidosis appears to have corrected Follow-up labs, avoid nephrotoxic injuries (4) Dehydration Code(s): E86.0 - Dehydration Status: Acute Plan: Continue IV hydration and follow-up electrolytes - Plan Patient is a 67-year-old gentleman with a history of Crohn's disease which has been in remission who presents with 2 weeks of malaise, associated diarrhea nausea and vomiting. Colonic malignancy Crohn's disease, possible flare up Abdominal pain, Right Quadrant -Patient states Crohn's disease flareup usually mild every 6 months when he drinks alcohol. States this now is severe. -CT of the abdomen and pelvis showed . 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 The largest nodular mass measures 5.5 x 2.0 cm and is located centrally. Evidence of possible circumferential mass in the region of the cecum raising the possibility of colonic neoplasm. Colonoscopy is recommended for further evaluation of this finding. Evidence of diffuse colonic wall thickening with loss of haustrations suggesting probable chronic colitis related to inflammatory bowel disease. Differential diagnosis includes ulcerative colitis and Crohn's disease. 1.6 cm right renal cyst. Degenerative changes and scoliosis of the thoracolumbar spine. -Colorectal surgeon consulted, appreciate recommendation. Plan for colonoscopy procedure -Pain management -Zofran/ Reglan as needed Acute kidney injury -Possibly secondary to dehydration -Continue IV fluids for gentle hydration -Avoid nephrotoxins -Monitor BMP DVT prop SCDs
[2018-01-26] MEDS: Hydrocortisone Inj 100 MG in Sodium Chlor 0.9% Inj 100 ML IV.SIG SCH (17:44)
--- NOTE | 2018-01-26 19:20 | P.PN ---
Subjective Interval history: Patient is clinically same , not in distress. Physical Exam Vital signs: Vital Signs 01/25/18 19:58 01/25/18 20:26 01/26/18 00:00 Temperature 98.1 F 98.3 F Pulse Rate 82 95 H Respiratory Rate 20 17 Blood Pressure 125/74 112/72 Pulse Oximetry 97 98 93 L 01/26/18 03:44 01/26/18 08:00 01/26/18 11:52 Temperature 98.2 F 98.0 F 97.7 F Pulse Rate 97 H 88 83 Respiratory Rate 18 16 16 Blood Pressure 110/72 123/84 121/76 Pulse Oximetry 94 L 94 L 97 01/26/18 15:25 01/26/18 15:30 01/26/18 15:45 Temperature 98 F Pulse Rate 75 73 71 Respiratory Rate 16 16 16 Blood Pressure 107/60 107/68 120/76 Pulse Oximetry 97 97 93 L 01/26/18 16:00 01/26/18 16:15 Temperature 98 F Pulse Rate 73 73 Respiratory Rate 16 16 Blood Pressure 117/73 117/73 Pulse Oximetry 98 96 Intake & Output 01/26/18 01/26/18 01/27/18 06:59 18:59 06:59 Intake Total 1100 / 1100 2200 / 2200 Balance 1100 / 1100 2200 / 2200 Weight 79 kg Intake: IV 1100 / 1100 1900 / 1900 NS Inj 1,000 ML @ 150 mls/hr IV 1000 / 1000 1000 / 1000 .CONT .Q6H40M [place] Rx#: [id number] Cipro 400 MG/200 ML Inj 400 mg 600 / 600 In 200 ml @ 200 mls/hr IV.SIG Q12H [place] Rx#:[id number] SoluCORTEF Inj 100 MG In NS Inj 100 / 100 100 ML @ 200 mls/hr IV.SIG Q8H [place] Rx#:[id number] Flagyl 500 MG Inj 100 ML @ 100 100 / 100 200 / 200 mls/hr IV.SIG Q8H [place] Rx#: [id number] Anesthesia Amount 300 / 300 Other: # Voids 5 Date of Last Bowel Movement 01/26/18 01/26/18 # Bowel Movements 5 Narrative: GENERAL: This is a thin appearing, well-developed patient, in no apparent distress. SKIN: Warm and dry. CARDIOVASCULAR: Regular rate and rhythm without murmurs, gallops, or rubs. RESPIRATORY: Rhonchi noted right lung. Breath sounds equal bilaterally. GASTROINTESTINAL: Abdomen bowel Sounds hypoactive. Ostomy in place, stoma pink with stool. MUSCULOSKELETAL: Extremities without clubbing, cyanosis, or edema. NEUROLOGICAL: Awake and alert. Oriented to place, person. No focal neuro deficit. Moves all extremities. Normal speech. - Urinary Catheter Management Indwelling Urethral Catheter Cath placed during this visit: yes, but has since been removed by the nurse Reason for continuing: Decision to DC catheter Insertion date: 01/30/18 Insertion time: 08:05 Removal date: 02/01/18 Removal time: 13:30 Results - Labs CBC & Chem 7: 02/02/18 08:15 02/04/18 05:53 Laboratory Results - last 24 hr 01/26/18 01/26/18 04:33 04:33 WBC 14.9 H RBC 5.37 Hgb 15.5 Hct 46.0 MCV 85.7 MCH 28.8 MCHC 33.6 RDW 14.2 Plt Count 402 MPV 8.4 Sodium 134 L Potassium 3.3 L Chloride 93 L Carbon Dioxide 28.0 Anion Gap 13 BUN 38 H Creatinine 1.28 Estimated GFR 56 L Random Glucose 131 H Calcium 9.5 Microbiology 01/25/18 01:45 Stool Stool for WBCs - Final Moderate WBC'S Assessment and Plan - Attending Attestation - Assessment (1) YVROSE (acute kidney injury) Code(s): N17.9 - Acute kidney failure, unspecified Status: Acute Plan: Acute kidney injury with acidosis most likely prerenal from dehydration with urine osmolarity of 501 Creatinine is stable at 1.28 . Avoid nephrotoxic agents including NSAIDS, IV contrast and aminoglycoside. On IVF fluids can be discontinued if patient good oral intake Continue antibiotics Follow the urine out put and BMP. (2) Abdominal pain Code(s): R10.9 - Unspecified abdominal pain Status: Acute Plan: Improved, On antibiotics, GI and general surgery.
--- NOTE | 2018-01-26 21:38 | ECG ---
Date Performed: 01/26/2018 Time Performed: 08:12:39 PTAGE: 67 years EKG: Sinus rhythm ABNORMAL R WAVE PROGRESSION BORDERLINE ECG PREVIOUS TRACING : 01/28/1993 16.42 Compared to previous tracing, abnormal R wave progression present DOCTOR: Edie Leo Interpretating Date/Time 01/26/2018 21:37:55
[2018-01-27] MEDS: Hydrocortisone Inj 100 MG in Sodium Chlor 0.9% Inj 100 ML IV.SIG SCH ×3 (02:03→16:01)
[2018-01-27] MEDS: Sod Chloride 0.9% Inj 1,000 ML IV.CONT SCH ×4 (02:54→14:12)
[2018-01-27] MEDS: Ciprofloxacin 400 MG/200 ML 400 MG/200 ML PIGGYBACK IV.SIG SCH ×2 (02:56→14:16)
[2018-01-27 10:19] LABS: Baso # (Auto) 0.1 th/mm3 (0.0-0.2); Baso % (Auto) 0.7 % (0.0-2.0); Hematocrit 39.5 % (39.0-51.0); Lymph # (Auto) 0.6 th/mm3 (1.0-4.8); Lymph % (Auto) 3.1 % (9.0-44.0); Mean Corpuscular HGB Conc 32.9 % (32.0-36.0); Mean Corpuscular Hemoglobin 29.3 pg (27.0-34.0); Mean Corpuscular Volume 89.1 fL (80.0-100.0); Mean Platelet Volume 9.1 fL (7.0-11.0); Mono # (Auto) 0.7 th/mm3 (0.0-0.9); Mono % (Auto) 3.7 % (0.0-8.0); Neut # (Auto) 17.1 th/mm3 (1.8-7.7); Neut % (Auto) 92.5 % (16.0-70.0); Platelet Count 333 th/mm3 (150-450); Red Blood Count 4.43 mil/mm3 (4.50-5.90); Red Cell Distribution Width 14.6 % (11.6-17.2); White Blood Count 18.5 th/mm3 (4.0-11.0)
--- NOTE | 2018-01-27 11:16 | P.PNNP ---
Subjective Interval history: Reports reports chronic shortness, and cramps. <Marycruz Ramos - Last Filed: 01/27/18 11:00> Physical Exam Vital signs: Vital Signs 01/26/18 11:52 01/26/18 15:25 01/26/18 15:30 Temperature 97.7 F 98 F Pulse Rate 83 75 73 Respiratory Rate 16 16 16 Blood Pressure 121/76 107/60 107/68 Pulse Oximetry 97 97 97 01/26/18 15:45 01/26/18 16:00 01/26/18 16:15 Temperature 98 F Pulse Rate 71 73 73 Respiratory Rate 16 16 16 Blood Pressure 120/76 117/73 117/73 Pulse Oximetry 93 L 98 96 01/26/18 16:40 01/26/18 19:21 01/26/18 23:38 Temperature 98 F 97.8 F 97.6 F Pulse Rate 81 83 75 Respiratory Rate 16 18 18 Blood Pressure 123/56 L 121/62 124/65 Pulse Oximetry 93 L 95 97 01/27/18 08:00 Temperature 97.3 F L Pulse Rate 66 Respiratory Rate 17 Blood Pressure 144/70 H Pulse Oximetry 97 Intake & Output 01/26/18 01/27/18 01/27/18 18:59 06:59 18:59 Intake Total 2200 / 2200 1200 / 1200 1400 / 1400 Balance 2200 / 2200 1200 / 1200 1400 / 1400 Weight 79 kg Intake: IV 1900 / 1900 1200 / 1200 1400 / 1400 NS Inj 1,000 ML @ 75 mls/hr IV. 1000 / 1000 1000 / 1000 1000 / 1000 CONT .[id number] [place] Rx#: [id number] Cipro 400 MG/200 ML Inj 400 mg 600 / 600 200 / 200 In 200 ml @ 200 mls/hr IV.SIG Q12H [place] Rx#:[id number] SoluCORTEF Inj 100 MG In NS Inj 100 / 100 100 / 100 100 / 100 100 ML @ 200 mls/hr IV.SIG Q8H [place] Rx#:[id number] Flagyl 500 MG Inj 100 ML @ 100 200 / 200 100 / 100 100 / 100 mls/hr IV.SIG Q8H [place] Rx#: [id number] Oral 0 / 0 Anesthesia Amount 300 / 300 Other: # Voids 4 Date of Last Bowel Movement 01/26/18 01/26/18 # Bowel Movements 0 - Constitutional no acute distress, cooperative - Routine HEENT Exam Head: Present: normocephalic - Routine Neck Exam Present: supple. Absent: JVD - Routine Respiratory Exam Present: CTA bilaterally. Absent: rales, rhonchi, crackles - Routine Cardiovascular Exam Present: RRR. Absent: murmur - Routine Abdominal Exam Present: soft, normoactive bowel sounds - Routine Neurological Exam Present: alert, oriented X3 - Detailed Neurological Exam: Coma Scale Eye Opening: Spontaneous - Routine Psychiatric Exam Present: normal affect, cooperative <Marycruz Ramos - Last Filed: 01/27/18 11:00> Vital signs: Vital Signs 01/26/18 23:38 01/27/18 08:00 01/27/18 11:06 Temperature 97.6 F 97.3 F L Pulse Rate 75 66 Respiratory Rate 18 17 Blood Pressure 124/65 144/70 H Pulse Oximetry 97 97 97 01/27/18 12:00 01/27/18 16:00 01/27/18 19:30 Temperature 97.2 F L 98.2 F Pulse Rate 66 81 Respiratory Rate 18 17 Blood Pressure 162/77 H Pulse Oximetry 97 97 96 01/27/18 20:00 Temperature 97.3 F L Pulse Rate 67 Respiratory Rate 16 Blood Pressure 151/86 H Pulse Oximetry 97 Intake & Output 01/27/18 01/27/18 01/28/18 06:59 18:59 06:59 Intake Total 1200 / 1200 2660 / 2660 100 / 100 Balance 1200 / 1200 2660 / 2660 100 / 100 Weight 79 kg Intake: IV 1200 / 1200 1700 / 1700 100 / 100 NS Inj 1,000 ML @ 75 mls/hr IV. 1000 / 1000 1000 / 1000 CONT .[id number] [place] Rx#: [id number] Cipro 400 MG/200 ML Inj 400 mg 400 / 400 In 200 ml @ 200 mls/hr IV.SIG Q12H [place] Rx#:[id number] SoluCORTEF Inj 100 MG In NS Inj 100 / 100 100 / 100 100 / 100 100 ML @ 200 mls/hr IV.SIG Q8H [place] Rx#:[id number] Flagyl 500 MG Inj 100 ML @ 100 100 / 100 200 / 200 mls/hr IV.SIG Q8H [place] Rx#: [id number] Oral 0 / 0 960 / 960 Other: # Voids 4 3 Date of Last Bowel Movement 01/26/18 01/27/18 # Bowel Movements 0 <Shauna De Anda - Last Filed: 01/27/18 22:42> Assessment and Plan - Assessment (1) YVROSE (acute kidney injury) Code(s): N17.9 - Acute kidney failure, unspecified Status: Acute Plan: Acute kidney injury with acidosis most likely prerenal from dehydration with urine osmolarity of 501 Creatinine has improved at 1.28 yesterday with labs pending today Avoid nephrotoxic agents including NSAIDS, IV contrast and aminoglycoside. On IVF fluids can be discontinued if patient good oral intake Continue antibiotics With improvement in creatinine Nephrology will see patient PRN BMP pending today (2) Abdominal pain Code(s): R10.9 - Unspecified abdominal pain Status: Acute Plan: Improved, On antibiotics, GI and general surgery. <Marycruz Ramos - Last Filed: 01/27/18 11:00> - Assessment (1) YVROSE (acute kidney injury) Code(s): N17.9 - Acute kidney failure, unspecified Status: Acute (2) Abdominal pain Code(s): R10.9 - Unspecified abdominal pain Status: Acute - Attending Attestation Patient seen and examined, agree with above. Creatinine is now normalized, I will sign off from Nephrology, call again if needed. <Shauna De Anda - Last Filed: 01/27/18 22:42>
[2018-01-27 11:31] LABS: Monocytes 3 % (0-8); Myelocytes 1 % (0-0); Platelet Estimate Normal (Normal); Platelet Morphology Normal (Normal); Toxic Granulation 1+
[2018-01-27 12:18] LABS: Calcium 8.6 mg/dL (8.5-10.1); Carbon Dioxide 21.7 meq/L (21.0-32.0); Potassium 4.1 meq/L (3.5-5.1)
--- NOTE | 2018-01-27 17:34 | P.PN ---
Subjective Interval history: Follow-up visit Crohn's disease, increased diarrhea, nausea, vomiting, increased abdominal pain right quadrant. Patient seen and examined today. States that he is feeling a lot better. Denies pain and discomfort. Denies SOB / dyspnea. Denies chest pain, palpitations, headaches, dizziness. Denies fevers , chills, n/v/d. Denies dysuria. Physical Exam Vital signs: Vital Signs 01/26/18 19:21 01/26/18 23:38 01/27/18 08:00 Temperature 97.8 F 97.6 F 97.3 F L Pulse Rate 83 75 66 Respiratory Rate 18 18 17 Blood Pressure 121/62 124/65 144/70 H Pulse Oximetry 95 97 97 01/27/18 11:06 01/27/18 12:00 Temperature 97.2 F L Pulse Rate 66 Respiratory Rate 18 Blood Pressure 162/77 H Pulse Oximetry 97 97 Intake & Output 01/26/18 01/27/18 01/27/18 18:59 06:59 18:59 Intake Total 2200 / 2200 1200 / 1200 1700 / 1700 Balance 2200 / 2200 1200 / 1200 1700 / 1700 Weight 79 kg Intake: IV 1900 / 1900 1200 / 1200 1700 / 1700 NS Inj 1,000 ML @ 75 mls/hr IV. 1000 / 1000 1000 / 1000 1000 / 1000 CONT .[id number] [place] Rx#: [id number] Cipro 400 MG/200 ML Inj 400 mg 600 / 600 400 / 400 In 200 ml @ 200 mls/hr IV.SIG Q12H [place] Rx#:[id number] SoluCORTEF Inj 100 MG In NS Inj 100 / 100 100 / 100 100 / 100 100 ML @ 200 mls/hr IV.SIG Q8H [place] Rx#:[id number] Flagyl 500 MG Inj 100 ML @ 100 200 / 200 100 / 100 200 / 200 mls/hr IV.SIG Q8H [place] Rx#: [id number] Oral 0 / 0 Anesthesia Amount 300 / 300 Other: # Voids 4 Date of Last Bowel Movement 01/26/18 01/26/18 # Bowel Movements 0 Narrative: GENERAL: This is a well-nourished, well-developed patient, in no apparent distress. SKIN: Warm and dry. HEENT: Normocephalic. Pupils equal round and reactive. Nose without bleeding. Airway patent. NECK: Trachea midline. No JVD. Supple. CARDIOVASCULAR: Regular rate and rhythm without murmurs, gallops, or rubs. RESPIRATORY: Clear to auscultation. Breath sounds equal bilaterally. No wheezes , rales, or rhonchi. GASTROINTESTINAL: Abdomen distended. Bowel Sounds hypoactive. MUSCULOSKELETAL: Extremities without clubbing, cyanosis, or edema. NEUROLOGICAL: Awake and alert. Oriented to place, person. No focal neuro deficit. Moves all extremities. Normal speech. Results - Labs CBC & Chem 7: 01/27/18 04:34 01/27/18 04:34 Laboratory Results - last 24 hr 01/27/18 01/27/18 01/27/18 04:34 04:34 04:34 WBC 18.5 H RBC 4.43 L Hgb 13.0 D Hct 39.5 MCV 89.1 MCH 29.3 MCHC 32.9 RDW 14.6 Plt Count 333 MPV 9.1 Prelim Diff (Auto) Slide review pending Neut % (Auto) 92.5 H Lymph % (Auto) 3.1 L [place] % (Auto) 3.7 Eos % (Auto) 0.0 Baso % (Auto) 0.7 Neut # (Auto) 17.1 H Lymph # (Auto) 0.6 L [place] # (Auto) 0.7 Eos # (Auto) 0.0 Baso # (Auto) 0.1 WBC Differential Manual diff final Seg Neuts % (Manual) 85 H Band Neuts % (Manual) 11 H Monocytes % (Manual) 3 Myelocytes % (Man) 1 H Abs Neuts (Manual) 17.9 H Differential Comment . Toxic Granulation 1+ H Platelet Estimate Normal Platelet Morphology Normal ESR 28 H Sodium Potassium Chloride Carbon Dioxide Anion Gap BUN Creatinine Estimated GFR Random Glucose Calcium Carcinoembryonic Ag 53.2 H 01/27/18 04:34 WBC RBC Hgb Hct MCV MCH MCHC RDW Plt Count MPV Prelim Diff (Auto) Neut % (Auto) Lymph % (Auto) [place] % (Auto) Eos % (Auto) Baso % (Auto) Neut # (Auto) Lymph # (Auto) [place] # (Auto) Eos # (Auto) Baso # (Auto) WBC Differential Seg Neuts % (Manual) Band Neuts % (Manual) Monocytes % (Manual) Myelocytes % (Man) Abs Neuts (Manual) Differential Comment Toxic Granulation Platelet Estimate Platelet Morphology ESR Sodium 139 Potassium 4.1 D Chloride 103 D Carbon Dioxide 21.7 Anion Gap 14 BUN 28 H Creatinine 1.08 Estimated GFR 68 L Random Glucose 146 H Calcium 8.6 D Carcinoembryonic Ag Assessment and Plan - Assessment (1) Abdominal pain Code(s): R10.9 - Unspecified abdominal pain Status: Acute Plan: Likely due to colonic malignancy with evidence of metastases. Continue with IV hydration and supportive care Colorectal surgery follow-up (patient does follow with Dr. Hong. I called directly today as consult was not able to go through the new system.) Follow- up stool studies and empiric Cipro and Flagyl c diff pending (2) CD (Crohn's disease) Code(s): K50.90 - Crohn's disease, unspecified, without complications Status: Chronic Plan: Currently stable per patient and his last flare was over 3 years ago. Continue to follow with colorectal (3) YVROSE (acute kidney injury) Code(s): N17.9 - Acute kidney failure, unspecified Status: Acute Plan: Patient with acute metabolic acidosis secondary to acute kidney injury, likely due to dehydration renal follow-up appreciated. Continue iv hydration, acidosis appears to have corrected Follow-up labs, avoid nephrotoxic injuries (4) Dehydration Code(s): E86.0 - Dehydration Status: Acute Plan: Continue IV hydration and follow-up electrolytes - Plan Patient is a 67-year-old gentleman with a history of Crohn's disease which has been in remission who presents with 2 weeks of malaise, associated diarrhea nausea and vomiting. Colonic malignancy Crohn's disease, possible flare up Abdominal pain, Right Quadrant -Patient states Crohn's disease flareup usually mild every 6 months when he drinks alcohol. States this now is severe. -CT of the abdomen and pelvis showed . 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 The largest nodular mass measures 5.5 x 2.0 cm and is located centrally. Evidence of possible circumferential mass in the region of the cecum raising the possibility of colonic neoplasm. Colonoscopy is recommended for further evaluation of this finding. Evidence of diffuse colonic wall thickening with loss of haustrations suggesting probable chronic colitis related to inflammatory bowel disease. Differential diagnosis includes ulcerative colitis and Crohn's disease. 1.6 cm right renal cyst. Degenerative changes and scoliosis of the thoracolumbar spine. -Colorectal surgeon consulted, appreciate recommendation. Plan for colonoscopy procedure -Pain management -Zofran/ Reglan as needed Acute kidney injury -Possibly secondary to dehydration -Continue IV fluids for gentle hydration -Avoid nephrotoxins -Monitor BMP -Nephrology consulted appreciate recommendations. DVT prop SCDs Code Status: Full Code Discussed Condition With: Patient, Dr. Galindo Discharge Planning: Plan to DC home when clinically improved.
--- NOTE | 2018-01-27 22:23 | P.PN ---
Physical Exam Vital signs: Vital Signs 01/26/18 23:38 01/27/18 08:00 01/27/18 11:06 Temperature 97.6 F 97.3 F L Pulse Rate 75 66 Respiratory Rate 18 17 Blood Pressure 124/65 144/70 H Pulse Oximetry 97 97 97 01/27/18 12:00 01/27/18 16:00 01/27/18 19:30 Temperature 97.2 F L 98.2 F Pulse Rate 66 81 Respiratory Rate 18 17 Blood Pressure 162/77 H Pulse Oximetry 97 97 96 01/27/18 20:00 Temperature 97.3 F L Pulse Rate 67 Respiratory Rate 16 Blood Pressure 151/86 H Pulse Oximetry 97 Intake & Output 01/27/18 01/27/18 01/28/18 06:59 18:59 06:59 Intake Total 1200 / 1200 2660 / 2660 100 / 100 Balance 1200 / 1200 2660 / 2660 100 / 100 Weight 79 kg Intake: IV 1200 / 1200 1700 / 1700 100 / 100 NS Inj 1,000 ML @ 75 mls/hr IV. 1000 / 1000 1000 / 1000 CONT .[id number] [place] Rx#: [id number] Cipro 400 MG/200 ML Inj 400 mg 400 / 400 In 200 ml @ 200 mls/hr IV.SIG Q12H [place] Rx#:[id number] SoluCORTEF Inj 100 MG In NS Inj 100 / 100 100 / 100 100 / 100 100 ML @ 200 mls/hr IV.SIG Q8H [place] Rx#:[id number] Flagyl 500 MG Inj 100 ML @ 100 100 / 100 200 / 200 mls/hr IV.SIG Q8H [place] Rx#: [id number] Oral 0 / 0 960 / 960 Other: # Voids 4 3 Date of Last Bowel Movement 01/26/18 01/27/18 # Bowel Movements 0 - Routine Abdominal Exam Present: soft, normoactive bowel sounds - Detailed Abdominal Exam Comments: round, mild tympany Results - Labs CBC & Chem 7: 01/27/18 04:34 01/27/18 04:34 Laboratory Results - last 24 hr 01/27/18 01/27/18 01/27/18 04:34 04:34 04:34 WBC 18.5 H RBC 4.43 L Hgb 13.0 D Hct 39.5 MCV 89.1 MCH 29.3 MCHC 32.9 RDW 14.6 Plt Count 333 MPV 9.1 Prelim Diff (Auto) Slide review pending Neut % (Auto) 92.5 H Lymph % (Auto) 3.1 L [place] % (Auto) 3.7 Eos % (Auto) 0.0 Baso % (Auto) 0.7 Neut # (Auto) 17.1 H Lymph # (Auto) 0.6 L [place] # (Auto) 0.7 Eos # (Auto) 0.0 Baso # (Auto) 0.1 WBC Differential Manual diff final Seg Neuts % (Manual) 85 H Band Neuts % (Manual) 11 H Monocytes % (Manual) 3 Myelocytes % (Man) 1 H Abs Neuts (Manual) 17.9 H Differential Comment . Toxic Granulation 1+ H Platelet Estimate Normal Platelet Morphology Normal ESR 28 H Sodium Potassium Chloride Carbon Dioxide Anion Gap BUN Creatinine Estimated GFR Random Glucose Calcium Carcinoembryonic Ag 53.2 H 01/27/18 04:34 WBC RBC Hgb Hct MCV MCH MCHC RDW Plt Count MPV Prelim Diff (Auto) Neut % (Auto) Lymph % (Auto) [place] % (Auto) Eos % (Auto) Baso % (Auto) Neut # (Auto) Lymph # (Auto) [place] # (Auto) Eos # (Auto) Baso # (Auto) WBC Differential Seg Neuts % (Manual) Band Neuts % (Manual) Monocytes % (Manual) Myelocytes % (Man) Abs Neuts (Manual) Differential Comment Toxic Granulation Platelet Estimate Platelet Morphology ESR Sodium 139 Potassium 4.1 D Chloride 103 D Carbon Dioxide 21.7 Anion Gap 14 BUN 28 H Creatinine 1.08 Estimated GFR 68 L Random Glucose 146 H Calcium 8.6 D Carcinoembryonic Ag Assessment and Plan - Plan some better, try po liquids OOB steroids prob surgery to be scheduled
[2018-01-28] MEDS: Hydrocortisone Inj 100 MG in Sodium Chlor 0.9% Inj 100 ML IV.SIG SCH ×2 (00:16→08:10)
[2018-01-28] MEDS: Ciprofloxacin 400 MG/200 ML 400 MG/200 ML PIGGYBACK IV.SIG SCH ×2 (02:23→14:35)
[2018-01-28] MEDS: Sod Chloride 0.9% Inj 1,000 ML IV.CONT SCH (05:26)
[2018-01-28 07:29] LABS: Baso % (Auto) 0.1 % (0.0-2.0); Hematocrit 40.2 % (39.0-51.0); Hemoglobin 13.1 gm/dL (13.0-17.0); Lymph # (Auto) 0.7 th/mm3 (1.0-4.8); Mean Corpuscular HGB Conc 32.7 % (32.0-36.0); Mean Corpuscular Hemoglobin 29.1 pg (27.0-34.0); Mean Platelet Volume 8.8 fL (7.0-11.0); Mono % (Auto) 5.6 % (0.0-8.0); Neut # (Auto) 16.7 th/mm3 (1.8-7.7); Neut % (Auto) 90.3 % (16.0-70.0); Platelet Count 320 th/mm3 (150-450); Red Blood Count 4.51 mil/mm3 (4.50-5.90); Red Cell Distribution Width 14.4 % (11.6-17.2); White Blood Count 18.5 th/mm3 (4.0-11.0)
[2018-01-28 07:34] LABS: Calcium 8.8 mg/dL (8.5-10.1); Carbon Dioxide 23.9 meq/L (21.0-32.0)
[2018-01-28 09:29] LABS: Platelet Estimate Normal (Normal); Platelet Morphology Normal (Normal); RBC Morphology Normal (Normal)
--- NOTE | 2018-01-28 16:35 | P.PN ---
Subjective Interval history: Follow-up visit Crohn's disease, increased diarrhea, nausea, vomiting, increased abdominal pain right quadrant. Patient seen and examined today. Reports he is doing well. States states he has not seen Dr. Alexander today. Pain is manageable. States he has 3 bowel movements today, small amount, not diarrhea. Denies pain and discomfort. Denies SOB/ dyspnea. Denies chest pain , palpitations, headaches, dizziness. Denies fevers, chills. Denies dysuria. Physical Exam Vital signs: Vital Signs 01/27/18 19:30 01/27/18 20:00 01/28/18 00:40 Temperature 97.3 F L 97.9 F Pulse Rate 67 60 Respiratory Rate 16 16 Blood Pressure 151/86 H 147/82 H Pulse Oximetry 96 97 95 01/28/18 08:00 01/28/18 12:00 01/28/18 16:00 Temperature 97.3 F L 97.4 F L 98.2 F Pulse Rate 54 L 62 45 L Respiratory Rate 16 18 17 Blood Pressure 146/67 H 134/71 136/66 Pulse Oximetry 96 94 L 97 Intake & Output 01/27/18 01/28/18 01/28/18 18:59 06:59 18:59 Intake Total 2660 / 2660 1979 / 1979 100 / 100 Balance 2660 / 2660 1979 100 / 100 Intake: IV 1700 / 1700 1500 / 1500 100 / 100 NS Inj 1,000 ML @ 75 mls/hr IV. 1000 / 1000 1000 / 1000 CONT .[id number] [place] Rx#: [id number] Cipro 400 MG/200 ML Inj 400 mg 400 / 400 200 / 200 In 200 ml @ 200 mls/hr IV.SIG Q12H [place] Rx#:[id number] SoluCORTEF Inj 100 MG In NS Inj 100 / 100 200 / 200 100 ML @ 200 mls/hr IV.SIG Q8H [place] Rx#:[id number] Flagyl 500 MG Inj 100 ML @ 100 200 / 200 100 / 100 100 / 100 mls/hr IV.SIG Q8H [place] Rx#: [id number] Oral 960 / 960 480 / 480 Other: # Voids 3 3 Date of Last Bowel Movement 01/27/18 01/27/18 01/28/18 # Bowel Movements 0 Narrative: GENERAL: This is a well-nourished, well-developed patient, in no apparent distress. SKIN: Warm and dry. HEENT: Normocephalic. Pupils equal round and reactive. Nose without bleeding. Airway patent. NECK: Trachea midline. CARDIOVASCULAR: Regular rate and rhythm without murmurs, gallops, or rubs. RESPIRATORY: Clear to auscultation. Breath sounds equal bilaterally. No wheezes , rales, or rhonchi. GASTROINTESTINAL: Abdomen distended. Bowel Sounds hypoactive. MUSCULOSKELETAL: Extremities without clubbing, cyanosis, or edema. NEUROLOGICAL: Awake and alert. Oriented to place, person. No focal neuro deficit. Moves all extremities. Normal speech. Results - Labs CBC & Chem 7: 01/28/18 05:24 01/28/18 05:24 Laboratory Results - last 24 hr 01/28/18 01/28/18 05:24 05:24 WBC 18.5 H RBC 4.51 Hgb 13.1 Hct 40.2 MCV 89.0 MCH 29.1 MCHC 32.7 RDW 14.4 Plt Count 320 MPV 8.8 Prelim Diff (Auto) Slide review pending Neut % (Auto) 90.3 H Lymph % (Auto) 4.0 L [place] % (Auto) 5.6 Eos % (Auto) 0.0 Baso % (Auto) 0.1 Neut # (Auto) 16.7 H Lymph # (Auto) 0.7 L [place] # (Auto) 1.0 H Eos # (Auto) 0.0 Baso # (Auto) 0.0 WBC Differential . Diff Scan Auto diff confirmed Differential Comment . 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 Continue with IV hydration and supportive care Colorectal surgery follow-up (patient does follow with Dr. Hong. I called directly today as consult was not able to go through the new system.) Follow- up stool studies and empiric Cipro and Flagyl c diff pending (2) CD (Crohn's disease) Code(s): K50.90 - Crohn's disease, unspecified, without complications Status: Chronic Plan: Currently stable per patient and his last flare was over 3 years ago. Continue to follow with colorectal (3) YVROSE (acute kidney injury) Code(s): N17.9 - Acute kidney failure, unspecified Status: Acute Plan: Patient with acute metabolic acidosis secondary to acute kidney injury, likely due to dehydration renal follow-up appreciated. Continue iv hydration, acidosis appears to have corrected Follow-up labs, avoid nephrotoxic injuries (4) Dehydration Code(s): E86.0 - Dehydration Status: Acute Plan: Continue IV hydration and follow-up electrolytes - Plan Patient is a 67-year-old gentleman with a history of Crohn's disease which has been in remission who presents with 2 weeks of malaise, associated diarrhea nausea and vomiting. Colonic malignancy Crohn's disease, possible flare up Abdominal pain, Right Quadrant -Patient states Crohn's disease flareup usually mild every 6 months when he drinks alcohol. States this now is severe. -CT of the abdomen and pelvis showed . 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 The largest nodular mass measures 5.5 x 2.0 cm and is located centrally. Evidence of possible circumferential mass in the region of the cecum raising the possibility of colonic neoplasm. Colonoscopy is recommended for further evaluation of this finding. Evidence of diffuse colonic wall thickening with loss of haustrations suggesting probable chronic colitis related to inflammatory bowel disease. Differential diagnosis includes ulcerative colitis and Crohn's disease. 1.6 cm right renal cyst. Degenerative changes and scoliosis of the thoracolumbar spine. -Colorectal surgeon consulted, appreciate recommendation. Colonoscopy procedure done, possible surgical intervention -Pain management. Steroid IV -IV Flagyl and Cipro -Zofran/ Reglan as needed -Now on liquid diet, tolerating. Acute kidney injury -Possibly secondary to dehydration -Continue IV fluids for gentle hydration, and is at 30 mL's an hour -Avoid nephrotoxins -Monitor BMP -Nephrology consulted appreciate recommendations. -Improved Leukocytosis -Possibly secondary to steroid use -Monitor DVT prop SCDs Code Status: Full Code Discussed Condition With: Patient, Nursing Discharge Planning: Plan to DC home when clinically improved.
--- NOTE | 2018-01-28 18:04 | P.PNWCN ---
Wound Care Nurse Consult Description: Consult for Ostomy Management; stoma marking per Dr Alexander Communicated with: Patient Dr Ritter Garcia RN Additional information: Patient seen on for ileostomy marking. 2 sites marked on right side, upper and lower abdomen, within rectus muscle and >2 inches away from umbilicus. Patient abdomen is distended and difficult to assess for normal topography (creases etc.) Educational materials given to patient in preparation for surgery. Will follow up with patient on Wednesday01/31/18 for further teaching and assessment.
--- NOTE | 2018-01-28 18:43 | XR ---
EXAM DATE: 01/28/2018 6:18 PM EDT AGE/SEX: 67 years / Male INDICATIONS: Abdominal pain. CLINICAL DATA: This is the patient's initial encounter. Patient reports that signs and symptoms have been present for 1 day and indicates a pain score of 7/10. MEDICAL/SURGICAL HISTORY: Crohn's disease. None. COMPARISON: No prior exams available for comparison. FINDINGS: Multiple air-filled dilated loops of small bowel are noted suggesting small bowel obstruction versus ileus. Clinical correlation is recommended. Degenerative changes are noted throughout the thoracolumb ar spine. CONCLUSION: Multiple air-filled dilated loops of small bowel are noted suggesting small bowel obstruction versus ileus. Clinical correlation is recommended. Electronically signed by: Jose Enrique Loving MD 01/28/2018 6:41 PM EDT
--- NOTE | 2018-01-28 18:52 | MR ---
cc: Zelalem Alexander MD DATE: 01/26/2018 PREOPERATIVE DIAGNOSES: History of Crohn's disease, possible cecal mass. PROCEDURE PERFORMED: Colonoscopy to cecum. POSTOPERATIVE DIAGNOSES: Severe Crohn's disease of the entire colon with cobblestoning and friability. Disease of the ileocecal valve and terminal ileum. Areas of ulceration, but no luminal narrowing or stricture formation. SURGEON: Zelalem Alexander MD DESCRIPTION OF PROCEDURE: The patient was placed in the left lateral decubitus position. After adequate anesthesia sedation, rectal exam confirmed moderate severe inflammatory disease of the anus and anal canal with narrowing and stricturing. Olympus colonoscope was introduced into the rectum and advanced under direct vision through the proximal colon, noting relatively severe Crohn's disease throughout the entire colon. The scope passed over toward the cecum. The ileocecal valve appeared to be inflamed and consistent with Crohn's as well as the cecal wall and mucosa. No evidence of a tumor was present. Colonoscope was then gradually withdrawn, noting severe inflammation and friability throughout the entire colon. There did appear to be cobblestoning in the mucosa consistent with Crohn's. No skip areas were identified. The colon did appear somewhat foreshortened. Inflammation appeared to extend down toward the rectosigmoid and almost right to the dentate line. The patient tolerated the procedure quite well and was brought to the recovery room in stable condition. MD NAHUN Lopez/KD , 06:40 PM , 06:50 PM
--- NOTE | 2018-01-28 18:55 | P.PNCS ---
Subjective Interval history: Afebriel,VSS marcellus some PO c/o cramps some flatus Objective Vital Signs/Intake & Output: Vital Signs 01/27/18 19:30 01/27/18 20:00 01/28/18 00:40 Temperature 97.3 F L 97.9 F Pulse Rate 67 60 Respiratory Rate 16 16 Blood Pressure 151/86 H 147/82 H Pulse Oximetry 96 97 95 01/28/18 08:00 01/28/18 12:00 01/28/18 16:00 Temperature 97.3 F L 97.4 F L 98.2 F Pulse Rate 54 L 62 45 L Respiratory Rate 16 18 17 Blood Pressure 146/67 H 134/71 136/66 Pulse Oximetry 96 94 L 97 Intake & Output Result Diagrams: 01/28/18 05:24 01/28/18 05:24 Laboratory Results: Laboratory Results - last 24 hr Culture Results: Microbiology 01/25/18 01:45 Stool for WBCs - Final Stool Moderate WBC'S Imaging Studies: Impressions Abdomen X-Ray 01/28/18 00:00 CONCLUSION: Multiple air-filled dilated loops of small bowel are noted suggesting small bowel obstruction versus ileus. Clinical correlation is recommended. Medications: Active Medications Objective Remarks: PE alert Abd - full, more tympany, min tender Assessment and Plan - Plan Imp: SBO - KUB shows more SB distention NPO will need exploratory lap, with prob ileostomy seen by Pt Ed
[2018-01-29] MEDS: Hydrocortisone Inj 100 MG in Sodium Chlor 0.9% Inj 100 ML IV.SIG SCH ×3 (01:06→17:29)
[2018-01-29] MEDS: Ciprofloxacin 400 MG/200 ML 400 MG/200 ML PIGGYBACK IV.SIG SCH ×2 (02:09→14:58)
[2018-01-29] MEDS: Sod Chloride 0.9% Inj 1,000 ML IV.CONT SCH ×3 (06:12→22:42)
--- NOTE | 2018-01-29 10:27 | P.PNCS ---
Subjective Interval history: C/R Surg afebrile, VSS min flatus, mucus NO N/V still cramps Objective Vital Signs/Intake & Output: Vital Signs 01/28/18 12:00 01/28/18 16:00 01/28/18 20:00 Temperature 97.4 F L 98.2 F 98.4 F Pulse Rate 62 45 L 48 L Respiratory Rate 18 17 18 Blood Pressure 134/71 136/66 153/93 H Pulse Oximetry 94 L 97 97 Intake & Output Result Diagrams: 01/28/18 05:24 01/28/18 05:24 Imaging Studies: Impressions Abdomen X-Ray 01/28/18 00:00 CONCLUSION: Multiple air-filled dilated loops of small bowel are noted suggesting small bowel obstruction versus ileus. Clinical correlation is recommended. Medications: Active Medications Objective Remarks: PE alert Abd - soft, rounded, mod tympany, mild tender Assessment and Plan - Plan Imp: Cont SBO - place NGT , will need to go to OR for resection/stoma set-up for later today or in AM
--- NOTE | 2018-01-29 15:49 | P.PN ---
Subjective Interval history: Follow-up visit Crohn's disease, abdominal cramping, abdominal distension. Patient seen and examined today. Reports he is doing okay. Noticeable abdominal distension. States he has BM today, passing gas. States BM x3 first one was large and 2 others medium. Denies n/v. States he has not eaten overnight as he was not hungry. States he has occasional abdominal cramping and pain but otherwise states he is okay. Patient states he saw Dr. Alexander it is explained that he is going to have an NG tube by tomorrow and plan for surgery on Wednesday. He is n.p.o. for now. Denies pain and discomfort. Denies SOB/ dyspnea. Denies chest pain, palpitations, headaches, dizziness. Denies fevers, chills. Denies dysuria. Physical Exam Vital signs: Vital Signs 01/28/18 16:00 01/28/18 20:00 01/28/18 22:52 Temperature 98.2 F 98.4 F Pulse Rate 45 L 48 L Respiratory Rate 17 18 20 Blood Pressure 136/66 153/93 H Pulse Oximetry 97 97 01/29/18 00:00 01/29/18 04:00 01/29/18 06:08 Temperature 98.1 F 97.3 F L Pulse Rate 54 L 60 Respiratory Rate 18 18 20 Blood Pressure 161/74 H 175/93 H Pulse Oximetry 95 95 01/29/18 08:00 01/29/18 11:40 01/29/18 12:00 Temperature 97.3 F L 98.1 F Pulse Rate 54 L 54 L Respiratory Rate 12 14 Blood Pressure 167/96 H 196/92 H Pulse Oximetry 95 95 96 Intake & Output 01/28/18 01/29/18 01/29/18 18:59 06:59 18:59 Intake Total 2500 / 2500 500 / 500 1200 / 1200 Balance 2500 / 2500 500 / 500 1200 / 1200 Intake: IV 1500 / 1500 400 / 400 1200 / 1200 NS Inj 1,000 ML @ 100 mls/hr IV 1000 / 1000 1000 / 1000 .CONT .Q10H [place] Rx#:[id number] Cipro 400 MG/200 ML Inj 400 mg 200 / 200 200 / 200 In 200 ml @ 200 mls/hr IV.SIG Q12H [place] Rx#:[id number] SoluCORTEF Inj 100 MG In NS Inj 100 / 100 100 / 100 100 ML @ 200 mls/hr IV.SIG Q8H [place] Rx#:[id number] Flagyl 500 MG Inj 100 ML @ 100 200 / 200 100 / 100 200 / 200 mls/hr IV.SIG Q8H [place] Rx#: [id number] Oral 1000 / 1000 100 / 100 Other: # Voids 4 4 Date of Last Bowel Movement 01/28/18 01/30/18 01/30/18 # Bowel Movements 1 Narrative: GENERAL: This is a well-nourished, well-developed patient, in no apparent distress. SKIN: Warm and dry. HEENT: Normocephalic. Pupils equal round and reactive. Nose without bleeding. Airway patent. NECK: Trachea midline. CARDIOVASCULAR: Regular rate and rhythm without murmurs, gallops, or rubs. RESPIRATORY: Clear to auscultation. Breath sounds equal bilaterally. No wheezes , rales, or rhonchi. GASTROINTESTINAL: Abdomen distended, increased. Bowel Sounds hypoactive. MUSCULOSKELETAL: Extremities without clubbing, cyanosis, or edema. NEUROLOGICAL: Awake and alert. Oriented to place, person. No focal neuro deficit. Moves all extremities. Normal speech. Results - Labs CBC & Chem 7: 01/28/18 05:24 01/28/18 05:24 Laboratory Results - last 24 hr 01/29/18 12:20 Blood Type O Positive Blood Type Recheck Required Antibody Screen Negative - Imaging Impressions Abdomen X-Ray 01/28/18 00:00 CONCLUSION: Multiple air-filled dilated loops of small bowel are noted suggesting small bowel obstruction versus ileus. Clinical correlation is recommended. 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 Continue with IV hydration and supportive care Colorectal surgery follow-up (patient does follow with Dr. Hong. I called directly today as consult was not able to go through the new system.) Follow- up stool studies and empiric Cipro and Flagyl c diff pending (2) CD (Crohn's disease) Code(s): K50.90 - Crohn's disease, unspecified, without complications Status: Chronic Plan: Currently stable per patient and his last flare was over 3 years ago. Continue to follow with colorectal (3) YVROSE (acute kidney injury) Code(s): N17.9 - Acute kidney failure, unspecified Status: Acute Plan: Patient with acute metabolic acidosis secondary to acute kidney injury, likely due to dehydration renal follow-up appreciated. Continue iv hydration, acidosis appears to have corrected Follow-up labs, avoid nephrotoxic injuries (4) Dehydration Code(s): E86.0 - Dehydration Status: Acute Plan: Continue IV hydration and follow-up electrolytes - Plan Patient is a 67-year-old gentleman with a history of Crohn's disease which has been in remission who presents with 2 weeks of malaise, associated diarrhea nausea and vomiting. Colonic malignancy Crohn's disease, possible flare up Abdominal pain, Right Quadrant -Patient states Crohn's disease flareup usually mild every 6 months when he drinks alcohol. States this now is severe. -CT of the abdomen and pelvis showed . 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 The largest nodular mass measures 5.5 x 2.0 cm and is located centrally. Evidence of possible circumferential mass in the region of the cecum raising the possibility of colonic neoplasm. Colonoscopy is recommended for further evaluation of this finding. Evidence of diffuse colonic wall thickening with loss of haustrations suggesting probable chronic colitis related to inflammatory bowel disease. Differential diagnosis includes ulcerative colitis and Crohn's disease. 1.6 cm right renal cyst. Degenerative changes and scoliosis of the thoracolumbar spine. -Colorectal surgeon consulted, appreciate recommendation. Colonoscopy procedure done, possible surgical intervention -Pain management. Steroid IV -IV Flagyl and Cipro -Zofran/ Reglan as needed -Abdominal x-ray Multiple air-filled dilated loops of small bowel are noted suggesting small bowel obstruction versus ileus. Clinical correlation is recommended. -NPO for now. Abdomen more distended compared to previous, although he reports BM x3 -Plan for NGT placement tomorrow, surgical intervention possibly Wednesday Acute kidney injury -Possibly secondary to dehydration -Continue IV fluids for gentle hydration, NPO now -Avoid nephrotoxins -Monitor BMP -Nephrology consulted appreciate recommendations. -Improved Leukocytosis -Possibly secondary to steroid use -Monitor DVT prop SCDs Code Status: Full Code Discussed Condition With: Patient, nursing Discharge Planning: Plan to DC home when clinically improved.
[2018-01-30] MEDS: Hydrocortisone Inj 100 MG in Sodium Chlor 0.9% Inj 100 ML IV.SIG SCH (00:14)
[2018-01-30] MEDS: Ciprofloxacin 400 MG/200 ML 400 MG/200 ML PIGGYBACK IV.SIG SCH (02:57)
[2018-01-30] MEDS ORDERED: Metoprolol Tartrate 25 MG Tablet PO SCH (03:30)
[2018-01-30] MEDS ORDERED: Chlorhexidine Gluconate 2% 1 Pack (2 Cloths) TOPICAL SCH (03:30)
[2018-01-30] MEDS ORDERED: Sodium Chlor 0.9% Inj 500 ML IV.SIG SCH (04:00)
[2018-01-30] MEDS ORDERED: Sugammadex Inj 200 MG/2 ML Vial IV.PUSH ONE (08:54)
[2018-01-30] MEDS ORDERED: Albumin Human 5% Inj 250 ML IV.SIG ONE (09:21)
[2018-01-30] MEDS ORDERED: Potassium Chlor 20 mEq Premix 20 MEQ/100 ML PIGGYBACK IV.SIG PRN (10:07)
[2018-01-30] MEDS ORDERED: Potassium Chlor 40 mEq Premix 40 MEQ/100 ML PIGGYBACK IV.SIG PRN (10:07)
[2018-01-30] MEDS ORDERED: *morphine SULFATE 10 MG/ML PERIprocedure ONLY ONE ×2 (10:21→10:50)
[2018-01-30] MEDS ORDERED: fentaNYL Citrate Inj 100 MCG/2 ML Ampul ONE (10:23)
[2018-01-30] MEDS ORDERED: Morphine Inj 4 MG/ML Vial ONE (10:23)
[2018-01-30] MEDS ORDERED: Naloxone Inj 0.4 MG/ML Vial IV.PUSH PRN (10:27)
[2018-01-30] MEDS: Morphine Inj 30 MG/30 ML PCA.VIAL PCA PRN ×2 (11:23→14:00)
[2018-01-30] MEDS: SODIUM CHLOR 0.9% IV.SIG SCH ×2 (11:35→23:40)
[2018-01-30] MEDS: Pantoprazole Inj 40 MG Vial IV.PUSH SCH (11:35)
[2018-01-30] MEDS: HYDROCORTISONE IV.SIG SCH ×2 (11:35→23:40)
[2018-01-30] MEDS: KCL 20 mEq/D5W/NaCl 0.9% Inj 1,000 ML IV.CONT SCH ×2 (11:35→18:31)
[2018-01-30] MEDS ORDERED: Succinylcholine Inj 100 MG/5 ML Syringe IV.PUSH ONE (12:00)
[2018-01-30] MEDS ORDERED: Lidocaine PF 1% Inj 5 ML Syringe INFILTRATN ONE (12:00)
[2018-01-30] MEDS: PCA - Total MG Morphine Delevered per Shift MISCELLANE SCH ×2 (16:23→23:41)
[2018-01-30 16:57] LABS: Baso % (Auto) 0.2 % (0.0-2.0); Hematocrit 42.6 % (39.0-51.0); Hemoglobin 13.9 gm/dL (13.0-17.0); Lymph # (Auto) 0.5 th/mm3 (1.0-4.8); Lymph % (Auto) 1.8 % (9.0-44.0); Mean Corpuscular HGB Conc 32.6 % (32.0-36.0); Mean Corpuscular Hemoglobin 29.1 pg (27.0-34.0); Mean Platelet Volume 8.2 fL (7.0-11.0); Mono # (Auto) 1.2 th/mm3 (0.0-0.9); Mono % (Auto) 4.1 % (0.0-8.0); Neut % (Auto) 93.9 % (16.0-70.0); Platelet Count 329 th/mm3 (150-450); Red Blood Count 4.78 mil/mm3 (4.50-5.90); Red Cell Distribution Width 14.7 % (11.6-17.2); White Blood Count 29.8 th/mm3 (4.0-11.0)
[2018-01-30 17:11] LABS: Calcium 8.2 mg/dL (8.5-10.1); Carbon Dioxide 22.7 meq/L (21.0-32.0); Potassium 4.6 meq/L (3.5-5.1)
--- NOTE | 2018-01-30 17:39 | P.PN ---
Subjective Interval history: Follow-up visit Crohn's disease, abdominal cramping, abdominal distension, cecal mass status post colon resection with ostomy placement. Patient seen and examined today. States pain is manageable. Status post colon resection with ostomy placement. States they were not able to place NG tube on him secondary to his sinus problem, previous fractured nose. Denies SOB/ dyspnea. Denies chest pain, palpitations, headaches, dizziness. Denies fevers, chills, n/v/d. Denies dysuria. Physical Exam Vital signs: Vital Signs 01/29/18 20:00 01/29/18 22:48 01/30/18 00:00 Temperature 97.3 F L 97.1 F L Pulse Rate 64 57 L Respiratory Rate 18 18 18 Blood Pressure 177/90 H 170/86 H Pulse Oximetry 93 L 98 01/30/18 04:00 01/30/18 07:08 01/30/18 10:15 Temperature 97.4 F L 97.2 F L 96.0 F L Pulse Rate 54 L 51 L 62 Respiratory Rate 18 18 12 Blood Pressure 164/94 H 158/89 H 172/77 H Pulse Oximetry 96 95 97 01/30/18 10:30 01/30/18 10:45 01/30/18 11:00 Temperature Pulse Rate 57 L 56 L 55 L Respiratory Rate 14 14 14 Blood Pressure 151/70 H 150/62 H 150/70 H Pulse Oximetry 99 98 99 01/30/18 11:15 01/30/18 11:30 01/30/18 11:45 Temperature Pulse Rate 55 L 59 L 60 Respiratory Rate 12 12 15 Blood Pressure 152/75 H 163/74 H 169/70 H Pulse Oximetry 98 99 98 01/30/18 12:00 01/30/18 12:40 01/30/18 12:41 Temperature 97.4 F L 96.0 F L Pulse Rate 63 68 Respiratory Rate 14 16 16 Blood Pressure 161/73 H 163/76 H Pulse Oximetry 98 95 01/30/18 15:39 01/30/18 15:46 Temperature 97.4 F L Pulse Rate 68 Respiratory Rate 16 Blood Pressure 144/85 H Pulse Oximetry 94 L 94 L Intake & Output 01/29/18 01/30/18 01/30/18 18:59 06:59 18:59 Intake Total 1500 / 1500 1171 / 1171 4200 / 4200 Output Total 905 / 905 Balance 1500 / 1500 1171 / 1171 3295 / 3295 Weight 79 kg Intake: IV 1500 / 1500 1171 / 1171 1400 / 1400 NS Inj 1,000 ML @ 100 mls/hr IV 1000 / 1000 771 / 771 .CONT .Q10H [place] Rx#:[id number] Cipro 400 MG/200 ML Inj 400 mg 200 / 200 200 / 200 In 200 ml @ 200 mls/hr IV.SIG Q12H [place] Rx#:[id number] SoluCORTEF Inj 50 MG In NS Inj 100 / 100 100 / 100 100 / 100 100 ML @ 200 mls/hr IV.SIG Q8H [place] Rx#:[id number] LR 1000 mL Inj 1,000 ML @ 30 1000 / 1000 mls/hr IV.SIG .Q24H [place] Rx#: [id number] Ancef Inj 1,000 MG In NS Inj 100 / 100 100 ML @ 200 mls/hr IV.SIG Q8HR [place] Rx#:[id number] Flagyl 500 MG Inj 100 ML @ 100 200 / 200 100 / 100 200 / 200 mls/hr IV.SIG Q8H [place] Rx#: [id number] Oral 0 / 0 Anesthesia Amount 2800 / 2800 Output: Estimated Blood Loss 100 / 100 Urine Amount (Catheter) 805 / 805 Indwelling Urethral Catheter 805 / 805 Other: # Voids 3 Date of Last Bowel Movement 01/30/18 01/30/18 Narrative: GENERAL: This is a thin appearing, well-developed patient, in no apparent distress. SKIN: Warm and dry. HEENT: Normocephalic. Pupils equal round and reactive. Nose without bleeding. Airway patent. NECK: Trachea midline. CARDIOVASCULAR: Regular rate and rhythm without murmurs, gallops, or rubs. RESPIRATORY: Clear to auscultation. Breath sounds equal bilaterally. No wheezes , rales, or rhonchi. GASTROINTESTINAL: Abdomen bowel Sounds hypoactive. Ostomy in place, stoma pink not yet active. MUSCULOSKELETAL: Extremities without clubbing, cyanosis, or edema. NEUROLOGICAL: Awake and alert. Oriented to place, person. No focal neuro deficit. Moves all extremities. Normal speech. - Urinary Catheter Management Indwelling Urethral Catheter Cath placed during this visit: yes Reason for continuing: Other continuation reason Insertion date: 01/30/18 Insertion time: 08:05 Results - Labs CBC & Chem 7: 01/30/18 16:37 01/30/18 16:37 Laboratory Results - last 24 hr 01/30/18 01/30/18 01/30/18 08:20 16:37 16:37 WBC 29.8 H RBC 4.78 Hgb 13.9 Hct 42.6 MCV 89.0 MCH 29.1 MCHC 32.6 RDW 14.7 Plt Count 329 MPV 8.2 Neut % (Auto) 93.9 H Lymph % (Auto) 1.8 L [place] % (Auto) 4.1 Eos % (Auto) 0.0 Baso % (Auto) 0.2 Neut # (Auto) 28.0 H Lymph # (Auto) 0.5 L [place] # (Auto) 1.2 H Eos # (Auto) 0.0 Baso # (Auto) 0.0 WBC Differential . 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 Continue with IV hydration and supportive care Colorectal surgery follow-up (patient does follow with Dr. Hong. I called directly today as consult was not able to go through the new system.) Follow- up stool studies and empiric Cipro and Flagyl c diff pending (2) CD (Crohn's disease) Code(s): K50.90 - Crohn's disease, unspecified, without complications Status: Chronic Plan: Currently stable per patient and his last flare was over 3 years ago. Continue to follow with colorectal (3) YVROSE (acute kidney injury) Code(s): N17.9 - Acute kidney failure, unspecified Status: Acute Plan: Patient with acute metabolic acidosis secondary to acute kidney injury, likely due to dehydration renal follow-up appreciated. Continue iv hydration, acidosis appears to have corrected Follow-up labs, avoid nephrotoxic injuries (4) Dehydration Code(s): E86.0 - Dehydration Status: Acute Plan: Continue IV hydration and follow-up electrolytes - Plan Patient is a 67-year-old gentleman with a history of Crohn's disease which has been in remission who presents with 2 weeks of malaise, associated diarrhea nausea and vomiting. S/P colon/bowel resection, ostomy placement by Dr. Alexander, 01/30/18 Colonic malignancy Crohn's disease, possible flare up Abdominal pain, Right Quadrant -Patient states Crohn's disease flareup usually mild every 6 months when he drinks alcohol. States this now is severe. -CT of the abdomen and pelvis showed . 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 The largest nodular mass measures 5.5 x 2.0 cm and is located centrally. Evidence of possible circumferential mass in the region of the cecum raising the possibility of colonic neoplasm. Colonoscopy is recommended for further evaluation of this finding. Evidence of diffuse colonic wall thickening with loss of haustrations suggesting probable chronic colitis related to inflammatory bowel disease. Differential diagnosis includes ulcerative colitis and Crohn's disease. 1.6 cm right renal cyst. Degenerative changes and scoliosis of the thoracolumbar spine. -Colorectal surgeon consulted, appreciate recommendation. Colonoscopy procedure done, surgical intervention planned -Pain management. Steroid IV -IV Flagyl and Cipro DC, now on Ancef post op -Zofran/ Reglan as needed -Abdominal x-ray Multiple air-filled dilated loops of small bowel are noted suggesting small bowel obstruction versus ileus. Clinical correlation is recommended. -S/P resection, stoma pink, not yet active. Patient pain is controlled. IVF for hydration -Increased WBC possible steroid use and post surgical intervention. Will trend cont with IV ABX Acute kidney injury -Possibly secondary to dehydration -Nephrology consulted appreciate recommendations. -Avoid nephrotoxins -Improved DVT prop SCDs Code Status: Full code Discussed Condition With: Patient, nursing Discharge Planning: Plan to DC home when clinically improved.
[2018-01-31] MEDS: HYDROCORTISONE IV.SIG SCH ×3 (04:13→23:09)
[2018-01-31] MEDS: SODIUM CHLOR 0.9% IV.SIG SCH ×3 (04:13→23:09)
[2018-01-31 04:33] LABS: Baso % (Auto) 0.1 % (0.0-2.0); Hematocrit 39.7 % (39.0-51.0); Lymph # (Auto) 0.8 th/mm3 (1.0-4.8); Lymph % (Auto) 3.9 % (9.0-44.0); Mean Corpuscular HGB Conc 32.7 % (32.0-36.0); Mean Corpuscular Volume 88.7 fL (80.0-100.0); Mono # (Auto) 1.6 th/mm3 (0.0-0.9); Mono % (Auto) 8.1 % (0.0-8.0); Neut # (Auto) 17.2 th/mm3 (1.8-7.7); Neut % (Auto) 87.9 % (16.0-70.0); Platelet Count 299 th/mm3 (150-450); Red Blood Count 4.47 mil/mm3 (4.50-5.90); White Blood Count 19.5 th/mm3 (4.0-11.0)
[2018-01-31 04:52] LABS: Calcium 8.1 mg/dL (8.5-10.1); Carbon Dioxide 23.6 meq/L (21.0-32.0)
[2018-01-31] MEDS: Ketorolac Inj 30 MG/ML (IVP) Vial IV.PUSH PRN ×3 (06:38→23:20)
[2018-01-31] MEDS: KCL 20 mEq/D5W/NaCl 0.9% Inj 1,000 ML IV.CONT SCH ×2 (07:00→23:09)
[2018-01-31] MEDS: Pantoprazole Inj 40 MG Vial IV.PUSH SCH (08:45)
--- NOTE | 2018-01-31 10:10 | P.PNIM ---
Subjective Interval history: 7-8 Follow-up visit Crohn's disease, abdominal cramping, abdominal distension, cecal mass status post colon resection with ostomy placement. Patient seen and examined today. States pain is manageable. Status post colon resection with ostomy placement. States they were not able to place NG tube on him secondary to his sinus problem, previous fractured nose. Denies SOB/ dyspnea. Denies chest pain, palpitations, headaches, dizziness. Denies fevers, chills, n/v/d. Denies dysuria. 7-9 HAVING SOME OUTPUT FROM THE OSTOMY SITE DW RN AND PT STILL USING RADIAL ARM SAW OPERATOR SOME NEEDS PT AND OT TO EVAL AND TREAT AM LABS Physical Exam Vital signs: Vital Signs 01/30/18 10:15 01/30/18 10:30 01/30/18 10:45 Temperature 96.0 F L Pulse Rate 62 57 L 56 L Respiratory Rate 12 14 14 Blood Pressure 172/77 H 151/70 H 150/62 H Pulse Oximetry 97 99 98 01/30/18 11:00 01/30/18 11:15 01/30/18 11:30 Temperature Pulse Rate 55 L 55 L 59 L Respiratory Rate 14 12 12 Blood Pressure 150/70 H 152/75 H 163/74 H Pulse Oximetry 99 98 99 01/30/18 11:45 01/30/18 12:00 01/30/18 12:40 Temperature 97.4 F L Pulse Rate 60 63 Respiratory Rate 15 14 16 Blood Pressure 169/70 H 161/73 H Pulse Oximetry 98 98 01/30/18 12:41 01/30/18 15:39 01/30/18 15:46 Temperature 96.0 F L 97.4 F L Pulse Rate 68 68 Respiratory Rate 16 16 Blood Pressure 163/76 H 144/85 H Pulse Oximetry 95 94 L 94 L 01/30/18 19:00 01/30/18 20:00 01/30/18 21:00 Temperature 97.6 F Pulse Rate 62 62 60 Respiratory Rate 12 Blood Pressure 157/84 H Pulse Oximetry 01/30/18 22:00 01/30/18 23:00 01/31/18 00:00 Temperature 98.4 F Pulse Rate 58 L 58 L 62 Respiratory Rate 14 Blood Pressure 160/58 H Pulse Oximetry 01/31/18 01:52 01/31/18 03:00 01/31/18 03:27 Temperature 98.0 F Pulse Rate 60 62 66 Respiratory Rate 14 Blood Pressure 172/83 H Pulse Oximetry 01/31/18 04:25 01/31/18 05:46 01/31/18 07:00 Temperature 97.8 F Pulse Rate 62 51 L 56 L Respiratory Rate 20 Blood Pressure 161/92 H Pulse Oximetry 97 01/31/18 08:00 01/31/18 09:00 Temperature Pulse Rate 78 67 Respiratory Rate Blood Pressure Pulse Oximetry Intake & Output 01/30/18 01/31/18 01/31/18 18:59 06:59 18:59 Intake Total 5200 / 5200 300 / 300 Output Total 905 / 905 900 / 900 Balance 4295 / 4295 -600 / -600 Intake: IV 2400 / 2400 300 / 300 D5W/NS + KCL 20 mEq Inj 1,000 1000 / 1000 ML @ 175 mls/hr IV.CONT .Q5H43M [place] Rx#:[id number] SoluCORTEF Inj 50 MG In NS Inj 100 / 100 100 / 100 100 ML @ 200 mls/hr IV.SIG Q8H [place] Rx#:[id number] LR 1000 mL Inj 1,000 ML @ 30 1000 / 1000 mls/hr IV.SIG .Q24H [place] Rx#: [id number] Ancef Inj 1,000 MG In NS Inj 100 / 100 100 / 100 100 ML @ 200 mls/hr IV.SIG Q8HR [place] Rx#:[id number] Flagyl 500 MG Inj 100 ML @ 100 200 / 200 100 / 100 mls/hr IV.SIG Q8H [place] Rx#: [id number] Oral 0 / 0 Anesthesia Amount 2800 / 2800 Output: Estimated Blood Loss 100 / 100 Urine Amount (Catheter) 805 / 805 900 / 900 Indwelling Urethral Catheter 805 / 805 900 / 900 Narrative: GENERAL: This is a thin appearing, well-developed patient, in no apparent distress. SKIN: Warm and dry. HEENT: Normocephalic. Pupils equal round and reactive. Nose without bleeding. Airway patent. NECK: Trachea midline. CARDIOVASCULAR: Regular rate and rhythm without murmurs, gallops, or rubs. RESPIRATORY: Clear to auscultation. Breath sounds equal bilaterally. No wheezes , rales, or rhonchi. GASTROINTESTINAL: Abdomen bowel Sounds hypoactive. Ostomy in place, stoma pink POSITIVE STOOL IN BAG. MUSCULOSKELETAL: Extremities without clubbing, cyanosis, or edema. NEUROLOGICAL: Awake and alert. Oriented to place, person. No focal neuro deficit. Moves all extremities. Normal speech. INSIGHT AND JUDGEMENT ARE GOOD MOOD AND BEHAVIOR ARE APPROPRIATE - Urinary Catheter Management Indwelling Urethral Catheter Cath placed during this visit: yes Reason for continuing: Acute urinary retention Insertion date: 01/30/18 Insertion time: 08:05 Results - Labs CBC & Chem 7: 01/31/18 04:09 01/31/18 04:09 Laboratory Results - last 24 hr 01/30/18 01/30/18 01/31/18 16:37 16:37 04:09 WBC 29.8 H 19.5 H RBC 4.78 4.47 L Hgb 13.9 13.0 Hct 42.6 39.7 MCV 89.0 88.7 MCH 29.1 29.0 MCHC 32.6 32.7 RDW 14.7 15.0 Plt Count 329 299 MPV 8.2 8.0 Neut % (Auto) 93.9 H 87.9 H Lymph % (Auto) 1.8 L 3.9 L [place] % (Auto) 4.1 8.1 H Eos % (Auto) 0.0 0.0 Baso % (Auto) 0.2 0.1 Neut # (Auto) 28.0 H 17.2 H Lymph # (Auto) 0.5 L 0.8 L [place] # (Auto) 1.2 H 1.6 H Eos # (Auto) 0.0 0.0 Baso # (Auto) 0.0 0.0 WBC Differential . . Differential Comment Auto diff final Auto diff final Sodium 140 Potassium 4.6 Chloride 109 H Carbon Dioxide 22.7 Anion Gap 8 BUN 22 H Creatinine 1.04 Estimated GFR 71 L Random Glucose 213 H Calcium 8.2 L 01/31/18 04:09 WBC RBC Hgb Hct MCV MCH MCHC RDW Plt Count MPV Neut % (Auto) Lymph % (Auto) [place] % (Auto) Eos % (Auto) Baso % (Auto) Neut # (Auto) Lymph # (Auto) [place] # (Auto) Eos # (Auto) Baso # (Auto) WBC Differential Differential Comment Sodium 144 Potassium 5.0 Chloride 113 H Carbon Dioxide 23.6 Anion Gap 7 BUN 19 H Creatinine 1.02 Estimated GFR 73 L Random Glucose 166 H Calcium 8.1 L - Imaging ITS Impressions Abdomen/Pelvis CT 01/23/18 20:12 CONCLUSION: 1. 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 The largest nodular mass measures 5.5 x 2.0 cm and is located centrally. 2. Evidence of possible circumferential mass in the region of the cecum raising the possibility of colonic neoplasm. Colonoscopy is recommended for further evaluation of this finding. 3. Evidence of diffuse colonic wall thickening with loss of haustrations suggesting probable chronic colitis related to inflammatory bowel disease. Differential diagnosis includes ulcerative colitis and Crohn's disease. 4. 1.6 cm right renal cyst. 5. Degenerative changes and scoliosis of the thoracolumbar spine. Abdomen X-Ray 01/28/18 00:00 CONCLUSION: Multiple air-filled dilated loops of small bowel are noted suggesting small bowel obstruction versus ileus. Clinical correlation is recommended. - Procedures 01/26/2018 PREOPERATIVE DIAGNOSES: History of Crohn's disease, possible cecal mass. PROCEDURE PERFORMED: Colonoscopy to cecum. POSTOPERATIVE DIAGNOSES: Severe Crohn's disease of the entire colon with cobblestoning and friability. Disease of the ileocecal valve and terminal ileum. Areas of ulceration, but no luminal narrowing or stricture formation. SURGEON: Zelalem May MD 01-30 SP COLECTOMY WITH CREATION OF RIGHT SIDED ILEOSTOMY BY DR MAY Assessment and Plan - Assessment (1) Abdominal pain Code(s): R10.9 - Unspecified abdominal pain Status: Acute Plan: Likely due to colonic malignancy with evidence of metastases. Continue with IV hydration and supportive care Colorectal surgery follow-up (patient does follow with Dr. Hong.) Follow-up stool studies and empiric Cipro and Flagyl c diff pending SP COLECTOMY WITH RIGHT SIDED ILEOSTOMY BY DR MAY ON 01-30 (2) CD (Crohn's disease) Code(s): K50.90 - Crohn's disease, unspecified, without complications Status: Chronic Plan: Currently stable per patient and his last flare was over 3 years ago. Continue to follow with colorectal SP COLECTOMY WITH RIGHT SIDED ILEOSTOMY BY DR MAY ON 01-30 (3) YVROSE (acute kidney injury) Code(s): N17.9 - Acute kidney failure, unspecified Status: Acute Plan: Patient with acute metabolic acidosis secondary to acute kidney injury, likely due to dehydration renal follow-up appreciated. Continue iv hydration, acidosis appears to have corrected Follow-up labs, avoid nephrotoxic injuries (4) Dehydration Code(s): E86.0 - Dehydration Status: Acute Plan: Continue IV hydration and follow-up electrolytes - Plan SP COLECTOMY WITH RIGHT SIDED ILEOSTOMY BY DR MAY ON 01-30 STILL ON RADIAL ARM SAW OPERATOR DW RN AND PT PT AND OT AND AM LABS Code Status: FULL CODE Discussed Condition With: RN AND PT Discharge Planning: PENDING COLORECTAL CLEARANCE
--- NOTE | 2018-01-31 14:39 | P.PNWCN ---
Wound Care Nurse Consult Description: Follow up Consult for Ostomy Management per Dr Alexander Communicated with: Patient seen on for ostomy assessment and teaching. Recommendation: Assess stoma for red/pink color and moisture. Empty pouch when 1/3-1/2 full. Additional information: Stoma measures 1 1/4" round on right upper quadrant. Ileostomy is red, moist, moderately protruding. Wafer and pouch are intact and noted without leaks. Sanguinous post op drainage noted in pouch that was not emptied by greeting card writer. Bowel Diversion Stoma - Bowel Stoma Right Upper Abdomen Stoma Appearance: Round (RED) Collection Device: Two-piece, Moldable Wafer Drainage Description: Liquid (sanguinous ) Wafer Size: 2 1/4 Moldable (that was cut in O.R. and placed) Beatriz-Stomal Surrounding Tissue Sensation Description: No Symptoms (pt has no complaints of burning or stinging or itching or pain )
[2018-01-31] MEDS: amLODIPine 5 MG Tablet PO SCH (16:26)
--- NOTE | 2018-01-31 23:29 | P.PNCS ---
Subjective Interval history: C/R Surg POD #1 afebrile, VSS UO good stoma pink Objective Vital Signs/Intake & Output: Vital Signs Intake & Output Result Diagrams: 01/31/18 04:09 01/31/18 04:09 Laboratory Results: Laboratory Results - last 24 hr Medications: Active Medications Acetaminophen (Tylenol) 650 mg PO Q4H PRN PRN Reason: FEVER/PAIN 1-2 Hydrocodone Bitart/Acetaminophen (Everest 10/325) 1 tab PO Q4H PRN PRN Reason: PAIN 3-5 Last Admin: 01/29/18 22:48 Dose: 1 tab Objective Remarks: PE alert Abd - full, wound dry, stoma viable Assessment and Plan - Plan Imp: stable post-op OOB sips of clears decr IVF
[2018-02-01] MEDS: PCA - Total MG Morphine Delevered per Shift MISCELLANE SCH ×5 (00:10→14:41)
[2018-02-01 08:05] LABS: Baso % (Auto) 0.3 % (0.0-2.0); Eos # (Auto) 0.1 th/mm3 (0.0-0.4); Eos % (Auto) 0.6 % (0.0-4.0); Hemoglobin 11.5 gm/dL (13.0-17.0); Lymph % (Auto) 9.8 % (9.0-44.0); Mean Corpuscular Hemoglobin 29.7 pg (27.0-34.0); Mean Platelet Volume 8.9 fL (7.0-11.0); Neut # (Auto) 8.5 th/mm3 (1.8-7.7); Neut % (Auto) 80.3 % (16.0-70.0); Platelet Count 238 th/mm3 (150-450); Red Blood Count 3.89 mil/mm3 (4.50-5.90); Red Cell Distribution Width 14.7 % (11.6-17.2); White Blood Count 10.6 th/mm3 (4.0-11.0)
[2018-02-01 08:13] LABS: Albumin 1.9 g/dL (3.4-5.0); Anion Gap 9 meq/L (5-15); Aspartate Aminotransferase 15 U/L (15-37); Blood Urea Nitrogen 18 mg/dL (7-18); Calcium 8.2 mg/dL (8.5-10.1); Carbon Dioxide 22.5 meq/L (21.0-32.0); Chloride 113 meq/L (98-107); Glomerular Filtration Rate Greater Than 89 mL/min (>89); Glucose,Random 126 mg/dL (74-106); Potassium 4.2 meq/L (3.5-5.1); Sodium 144 meq/L (136-145)
[2018-02-01 08:14] LABS: Alanine Aminotransferase 16 U/L (12-78)
[2018-02-01 08:23] LABS: Alkaline Phosphatase 43 U/L (45-117); Free T4 (Free Thyroxine) 0.99 ng/dL (0.76-1.46); Phosphorus 1.6 mg/dL (2.5-4.9); Thyroid Stimulating Hormone 0.866 uIU/mL (0.358-3.740); Total Protein 4.8 g/dL (6.4-8.2)
[2018-02-01] MEDS: Pantoprazole Inj 40 MG Vial IV.PUSH SCH (09:27)
[2018-02-01] MEDS: amLODIPine 5 MG Tablet PO SCH (09:28)
[2018-02-01] MEDS: HYDROCORTISONE IV.SIG SCH (10:26)
[2018-02-01] MEDS: SODIUM CHLOR 0.9% IV.SIG SCH (10:26)
[2018-02-01] MEDS: KCL 20 mEq/D5W/NaCl 0.9% Inj 1,000 ML IV.CONT SCH ×3 (10:29→22:27)
--- NOTE | 2018-02-01 11:24 | P.PNIM ---
Subjective Interval history: 7-8 Follow-up visit Crohn's disease, abdominal cramping, abdominal distension, cecal mass status post colon resection with ostomy placement. Patient seen and examined today. States pain is manageable. Status post colon resection with ostomy placement. States they were not able to place NG tube on him secondary to his sinus problem, previous fractured nose. Denies SOB/ dyspnea. Denies chest pain, palpitations, headaches, dizziness. Denies fevers, chills, n/v/d. Denies dysuria. 7-9 HAVING SOME OUTPUT FROM THE OSTOMY SITE DW RN AND PT STILL USING INCINERATOR PLANT SUPERVISOR SOME NEEDS PT AND OT TO EVAL AND TREAT AM LABS 7-10 PATIENT TRANSFERRED OFF OF [facility] TODAY DC LARIOS DIET PER SURGERY CONTINUE PT AND OT AM LABS Physical Exam Vital signs: Vital Signs 01/31/18 12:00 01/31/18 13:00 01/31/18 14:00 Temperature Pulse Rate 48 L 50 L 48 L Respiratory Rate Blood Pressure Pulse Oximetry 01/31/18 15:00 01/31/18 16:00 01/31/18 17:00 Temperature 97.9 F Pulse Rate 68 56 L 48 L Respiratory Rate 20 Blood Pressure 167/90 H 151/73 H Pulse Oximetry 96 01/31/18 18:00 01/31/18 19:00 01/31/18 20:00 Temperature 97.9 F Pulse Rate 52 L 44 L 58 L Respiratory Rate 14 Blood Pressure 148/78 H Pulse Oximetry 95 01/31/18 21:00 01/31/18 22:00 01/31/18 23:00 Temperature 98.5 F Pulse Rate 54 L 54 L 50 L Respiratory Rate 14 Blood Pressure 152/74 H Pulse Oximetry 02/01/18 00:00 02/01/18 01:00 02/01/18 02:00 Temperature Pulse Rate 50 L 48 L 45 L Respiratory Rate Blood Pressure Pulse Oximetry 02/01/18 03:00 02/01/18 04:00 02/01/18 05:00 Temperature 97.7 F Pulse Rate 47 L 47 L 48 L Respiratory Rate 14 Blood Pressure 135/74 Pulse Oximetry 02/01/18 06:00 02/01/18 10:00 Temperature 97.8 F Pulse Rate 46 L 51 L Respiratory Rate 20 Blood Pressure 156/70 H Pulse Oximetry 96 Intake & Output 07/04/1202/01/18 02/01/18 18:59 06:59 18:59 Intake Total 2019 200 / 200 2300 / 2300 Output Total 720 / 720 750 / 750 Balance 1300 / 1300 -550 / -550 2300 / 2300 Weight 89.5 kg Intake: IV 1300 / 1300 200 / 200 2300 / 2300 D5W/NS + KCL 20 mEq Inj 1,000 1000 / 1000 1000 / 1000 ML @ 100 mls/hr IV.CONT .Q10H [place] Rx#:[id number] SoluCORTEF Inj 30 MG In NS Inj 100 / 100 100 / 100 100 / 100 100 ML @ 200 mls/hr IV.SIG Q12HR [place] Rx#:[id number] Flagyl 500 MG Inj 100 ML @ 100 200 / 200 100 / 100 100 / 100 mls/hr IV.SIG Q8H [place] Rx#: [id number] Oral 720 / 720 Output: Urine Amount (Catheter) 700 / 700 750 / 750 Indwelling Urethral Catheter 700 / 700 750 / 750 Stool Amount (Stoma) Right Upper Abdomen Other: Date of Last Bowel Movement 01/30/18 02/01/18 Narrative: GENERAL: This is a thin appearing, well-developed patient, in no apparent distress. SKIN: Warm and dry. HEENT: Normocephalic. Pupils equal round and reactive. Nose without bleeding. Airway patent. NECK: Trachea midline. CARDIOVASCULAR: Regular rate and rhythm without murmurs, gallops, or rubs. RESPIRATORY: Clear to auscultation. Breath sounds equal bilaterally. No wheezes , rales, or rhonchi. GASTROINTESTINAL: Abdomen bowel Sounds hypoactive. Ostomy in place, stoma pink POSITIVE STOOL IN BAG. MUSCULOSKELETAL: Extremities without clubbing, cyanosis, or edema. NEUROLOGICAL: Awake and alert. Oriented to place, person. No focal neuro deficit. Moves all extremities. Normal speech. INSIGHT AND JUDGEMENT ARE GOOD MOOD AND BEHAVIOR ARE APPROPRIATE LARIOS- WILL DISCONTINUE - Urinary Catheter Management Indwelling Urethral Catheter Cath placed during this visit: yes Reason for continuing: Other continuation reason Insertion date: 01/30/18 Insertion time: 08:05 Results - Labs CBC & Chem 7: 02/01/18 07:25 02/01/18 07:25 Laboratory Results - last 24 hr 02/01/18 02/01/18 07:25 07:25 WBC 10.6 RBC 3.89 L Hgb 11.5 L Hct 35.0 L MCV 90.0 MCH 29.7 MCHC 33.0 RDW 14.7 Plt Count 238 MPV 8.9 Neut % (Auto) 80.3 H Lymph % (Auto) 9.8 [place] % (Auto) 9.0 H Eos % (Auto) 0.6 Baso % (Auto) 0.3 Neut # (Auto) 8.5 H Lymph # (Auto) 1.0 [place] # (Auto) 1.0 H Eos # (Auto) 0.1 Baso # (Auto) 0.0 WBC Differential . Differential Comment Auto diff final Sodium 144 Potassium 4.2 D Chloride 113 H Carbon Dioxide 22.5 Anion Gap 9 BUN 18 Creatinine 0.80 Estimated GFR Greater than 89 Random Glucose 126 H Calcium 8.2 L Phosphorus 1.6 L Magnesium 2.0 Total Bilirubin 0.3 AST 15 ALT 16 Alkaline Phosphatase 43 L Total Protein 4.8 L Albumin 1.9 L TSH 0.866 Free T4 0.99 - Imaging ITS Impressions Abdomen/Pelvis CT 01/23/18 20:12 CONCLUSION: 1. 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 The largest nodular mass measures 5.5 x 2.0 cm and is located centrally. 2. Evidence of possible circumferential mass in the region of the cecum raising the possibility of colonic neoplasm. Colonoscopy is recommended for further evaluation of this finding. 3. Evidence of diffuse colonic wall thickening with loss of haustrations suggesting probable chronic colitis related to inflammatory bowel disease. Differential diagnosis includes ulcerative colitis and Crohn's disease. 4. 1.6 cm right renal cyst. 5. Degenerative changes and scoliosis of the thoracolumbar spine. Abdomen X-Ray 01/28/18 00:00 CONCLUSION: Multiple air-filled dilated loops of small bowel are noted suggesting small bowel obstruction versus ileus. Clinical correlation is recommended. - Procedures 01/26/2018 PREOPERATIVE DIAGNOSES: History of Crohn's disease, possible cecal mass. PROCEDURE PERFORMED: Colonoscopy to cecum. POSTOPERATIVE DIAGNOSES: Severe Crohn's disease of the entire colon with cobblestoning and friability. Disease of the ileocecal valve and terminal ileum. Areas of ulceration, but no luminal narrowing or stricture formation. SURGEON: Zelalem May MD 7-8 SP COLECTOMY WITH CREATION OF RIGHT SIDED ILEOSTOMY BY DR MAY Assessment and Plan - Assessment (1) Abdominal pain Code(s): R10.9 - Unspecified abdominal pain Status: Acute Plan: Likely due to colonic malignancy with evidence of metastases. Continue with IV hydration and supportive care Colorectal surgery follow-up (patient does follow with Dr. Hong.) Follow-up stool studies and empiric Cipro and Flagyl c diff pending SP COLECTOMY WITH RIGHT SIDED ILEOSTOMY BY DR MAY ON 01-30 (2) CD (Crohn's disease) Code(s): K50.90 - Crohn's disease, unspecified, without complications Status: Chronic Plan: Currently stable per patient and his last flare was over 3 years ago. Continue to follow with colorectal SP COLECTOMY WITH RIGHT SIDED ILEOSTOMY BY DR MAY ON 01-30 (3) YVROSE (acute kidney injury) Code(s): N17.9 - Acute kidney failure, unspecified Status: Acute Plan: Patient with acute metabolic acidosis secondary to acute kidney injury, likely due to dehydration renal follow-up appreciated. Continue iv hydration, acidosis appears to have corrected Follow-up labs, avoid nephrotoxic injuries (4) Dehydration Code(s): E86.0 - Dehydration Status: Acute Plan: Continue IV hydration and follow-up electrolytes - Plan SP COLECTOMY WITH RIGHT SIDED ILEOSTOMY BY DR MAY ON 01-30 STILL ON INCINERATOR PLANT SUPERVISOR- WEAN OFF INCINERATOR PLANT SUPERVISOR DW RN AND PT PT AND OT AND AM LABS Code Status: FULL CODE Discussed Condition With: RN AND PATIENT Discharge Planning: PENDING COLORECTAL CLEARANCE
[2018-02-01] MEDS: Morphine Inj 30 MG/30 ML PCA.VIAL PCA PRN (14:41)
[2018-02-01 16:12] LABS: Hemoglobin A1c 6.1 % (4.3-6.0)
--- NOTE | 2018-02-01 17:10 | P.PNWCN ---
Wound Care Nurse Consult Description: Follow up Consult for Ostomy Management per Dr Alexander Communicated with: Patient Recommendation: Assess stoma for red/pink color, moisture and output. Empty pouch when 1/3-1/2 full. Additional information: Patient seen on for ostomy assessment and reinforcement of teaching. Incision - Incision Midline Abdomen Other Cover Dressing: abdominal binder in place Bowel Diversion Stoma - Bowel Stoma Right Upper Abdomen Stoma Edema: Yes (mild) Stoma Appearance: Protruding (moderately), Round Loop Supporting Shaquille: No Collection Device: Two-piece Drainage Description: Soft, Liquid, Brown, Black Wafer Size: 2 1/4 Moldable (that was cut in O.R. and placed) Beatriz-Stomal Surrounding Tissue Sensation Description: No Symptoms
--- NOTE | 2018-02-01 17:45 | P.PNCS ---
Subjective Interval history: C/R Surg POD afebrile, VSS UO good stoma functioning Objective Vital Signs/Intake & Output: Vital Signs Intake & Output Result Diagrams: 02/01/18 07:25 02/01/18 07:25 Laboratory Results: Laboratory Results - last 24 hr Medications: Active Medications Objective Remarks: PE afebrile, VSS UO good -cath dc'd marcellus PO Assessment and Plan - Plan Imp: OOB sips of clears, adv decr IVF
[2018-02-01] MEDS ORDERED: HYDROCORTISONE IV.SIG SCH (17:48)
[2018-02-01] MEDS ORDERED: SODIUM CHLOR 0.9% IV.SIG SCH (17:48)
[2018-02-01] MEDS: Hydrocortisone Sod Succinate 100 MG Vial IV.PUSH SCH (20:23)
--- NOTE | 2018-02-02 08:52 | P.PN ---
Subjective Interval history: f/u cecal mass s/p resection with ostomy. He is doing good getting out of bed ambulating. Tolerating diet Physical Exam Vital signs: Vital Signs 02/01/18 09:00 02/01/18 10:00 02/01/18 12:00 Temperature 97.8 F 97.6 F Pulse Rate 56 L 75 76 Respiratory Rate 20 18 Blood Pressure 156/70 H 143/72 H Pulse Oximetry 96 93 L 02/01/18 17:00 02/01/18 20:00 02/02/18 00:00 Temperature 98.0 F 97.7 F 97.7 F Pulse Rate 58 L 52 L 50 L Respiratory Rate 18 17 16 Blood Pressure 152/78 H 156/82 H 136/74 Pulse Oximetry 95 95 95 Intake & Output 02/01/18 02/02/18 02/02/18 18:59 06:59 18:59 Intake Total 3800 / 3800 1340 / 1340 Output Total 950 / 950 Balance 3800 / 3800 390 / 390 Intake: IV 2400 / 2400 1100 / 1100 D5W/NS + KCL 20 mEq Inj 1,000 1000 / 1000 1000 / 1000 ML @ 75 mls/hr IV.CONT .[id number] [place] Rx#:[id number] SoluCORTEF Inj 30 MG In NS Inj 100 / 100 100 ML @ 200 mls/hr IV.SIG Q12HR [place] Rx#:[id number] Flagyl 500 MG Inj 100 ML @ 100 200 / 200 100 / 100 mls/hr IV.SIG Q8H [place] Rx#: [id number] Oral 1400 / 1400 240 / 240 Output: Urine 950 / 950 Other: # Voids 2 Date of Last Bowel Movement 02/01/18 Narrative: GENERAL: This is a thin appearing, well-developed patient, in no apparent distress. SKIN: Warm and dry. CARDIOVASCULAR: Regular rate and rhythm without murmurs, gallops, or rubs. RESPIRATORY: Clear to auscultation. Breath sounds equal bilaterally. No wheezes , rales, or rhonchi. GASTROINTESTINAL: Abdomen bowel Sounds hypoactive. Ostomy in place, stoma pink with stool. MUSCULOSKELETAL: Extremities without clubbing, cyanosis, or edema. NEUROLOGICAL: Awake and alert. Oriented to place, person. No focal neuro deficit. Moves all extremities. Normal speech. - Urinary Catheter Management Indwelling Urethral Catheter Cath placed during this visit: yes, but has since been removed by the nurse Reason for continuing: Decision to DC catheter Insertion date: 01/30/18 Insertion time: 08:05 Removal date: 02/01/18 Removal time: 13:30 Results - Labs CBC & Chem 7: 02/02/18 08:15 02/02/18 08:15 Laboratory Results - last 24 hr 02/01/18 07:25 Hemoglobin A1c 6.1 H - Imaging ITS Impressions Abdomen/Pelvis CT 01/23/18 20:12 CONCLUSION: 1. 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 The largest nodular mass measures 5.5 x 2.0 cm and is located centrally. 2. Evidence of possible circumferential mass in the region of the cecum raising the possibility of colonic neoplasm. Colonoscopy is recommended for further evaluation of this finding. 3. Evidence of diffuse colonic wall thickening with loss of haustrations suggesting probable chronic colitis related to inflammatory bowel disease. Differential diagnosis includes ulcerative colitis and Crohn's disease. 4. 1.6 cm right renal cyst. 5. Degenerative changes and scoliosis of the thoracolumbar spine. Abdomen X-Ray 01/28/18 00:00 CONCLUSION: Multiple air-filled dilated loops of small bowel are noted suggesting small bowel obstruction versus ileus. Clinical correlation is recommended. - Procedures 01/26/2018 Colonoscopy to cecum. 7-8 Colectomy with ileostomy Assessment and Plan - Assessment (1) Abdominal pain Code(s): R10.9 - Unspecified abdominal pain Status: Acute Plan: Likely due to colonic malignancy with evidence of metastases. Elevated CEA. Continue with IV hydration and supportive care Colorectal surgery follow-up (patient does follow with Dr. Hong.) Status post colectomy with right-sided ileostomy on January 30. F/u path will need Onc eval at some point (2) CD (Crohn's disease) Code(s): K50.90 - Crohn's disease, unspecified, without complications Status: Chronic Plan: Currently stable per patient and his last flare was over 3 years ago. Continue to follow with colorectal, wean steroids and Flagyl. Switch to po soon (3) YVROSE (acute kidney injury) Code(s): N17.9 - Acute kidney failure, unspecified Status: Acute Plan: Patient with acute metabolic acidosis secondary to acute kidney injury, likely due to dehydration renal follow-up appreciated. Continue iv hydration, acidosis appears to have corrected Follow-up labs, avoid nephrotoxic agents. Resolved (4) Dehydration Code(s): E86.0 - Dehydration Status: Acute Plan: Improved. Decrease IV hydration and follow-up electrolytes - Plan Dc aníbal PT ff- [facility] DVT proph with scd and early ambulation Discharge Planning: per CRS
[2018-02-02 09:20] LABS: Eos # (Auto) 0.2 th/mm3 (0.0-0.4); Eos % (Auto) 1.7 % (0.0-4.0); Hematocrit 35.4 % (39.0-51.0); Hemoglobin 11.6 gm/dL (13.0-17.0); Lymph # (Auto) 1.3 th/mm3 (1.0-4.8); Lymph % (Auto) 12.8 % (9.0-44.0); Mean Corpuscular HGB Conc 32.8 % (32.0-36.0); Mean Corpuscular Hemoglobin 29.1 pg (27.0-34.0); Mean Corpuscular Volume 88.6 fL (80.0-100.0); Mean Platelet Volume 8.6 fL (7.0-11.0); Mono # (Auto) 0.8 th/mm3 (0.0-0.9); Mono % (Auto) 7.4 % (0.0-8.0); Neut % (Auto) 78.1 % (16.0-70.0); Platelet Count 230 th/mm3 (150-450); Red Blood Count 3.99 mil/mm3 (4.50-5.90); Red Cell Distribution Width 14.9 % (11.6-17.2); White Blood Count 10.2 th/mm3 (4.0-11.0)
--- NOTE | 2018-02-02 09:41 | P.DCO ---
- Physical Therapy Order: Evaluate and treat, Improve ambulation, Strength and gait training - Home Health Nursing Order: Medical education, Medication education-adverse effect, Wound care and dressing changes - Certification I have seen patient Jose Enrique Stapleton on 02/02/18. My clinical findings support the need for the requested home health care services because: Deconditioned with increased weakness I certify that my clinical findings support that this patient is homebound because: Need for psychosocial assistance
[2018-02-02] MEDS: amLODIPine 5 MG Tablet PO SCH (10:05)
[2018-02-02] MEDS: Hydrocortisone Sod Succinate 100 MG Vial IV.PUSH SCH (10:05)
[2018-02-02] MEDS: Pantoprazole Inj 40 MG Vial IV.PUSH SCH (10:06)
[2018-02-02 10:14] LABS: Alanine Aminotransferase 21 U/L (12-78); Alkaline Phosphatase 55 U/L (45-117); Anion Gap 8 meq/L (5-15); Aspartate Aminotransferase 30 U/L (15-37); Blood Urea Nitrogen 13 mg/dL (7-18); Carbon Dioxide 23.8 meq/L (21.0-32.0); Chloride 108 meq/L (98-107); Glomerular Filtration Rate Greater Than 89 mL/min (>89); Glucose,Random 89 mg/dL (74-106); Magnesium 1.7 mg/dL (1.5-2.5); Phosphorus 1.4 mg/dL (2.5-4.9); Potassium 3.8 meq/L (3.5-5.1); Sodium 140 meq/L (136-145); Total Protein 5.2 g/dL (6.4-8.2)
[2018-02-02] MEDS ORDERED: Hydrocortisone Sod Succinate 100 MG Vial IV.PUSH SCH (10:46)
[2018-02-02] MEDS ORDERED: Sodium Phosphate Inj 15 MMOL in Sodium Chlor 0.9% Inj 100 ML IV.SIG ONE (11:00)
[2018-02-02] MEDS: KCL 20 mEq/D5W/NaCl 0.9% Inj 1,000 ML IV.CONT SCH (11:04)
[2018-02-02] MEDS: Sucralfate 1 GM Tablet PO SCH ×2 (11:52→18:31)
[2018-02-02] MEDS: Potassium Phos/Sodium Phos 250 MG Tablet PO SCH ×2 (13:37→18:30)
--- NOTE | 2018-02-02 14:14 | P.PNWCN ---
Wound Care Nurse Consult Description: Follow up Consult for Ostomy Management per Dr Alexander Communicated with: Patient Dr Woodson Recommendation: Assess stoma for red/pink color, moisture and output. Empty pouch when 1/3-1/2 full. Change wafer and pouching system Q3-5 days and PRN for leaks. Additional information: Patient seen on for ostomy assessment and teaching. Bowel Diversion Stoma - Bowel Stoma Right Upper Abdomen Stoma Edema: Yes (mild) Stoma Appearance: Protruding (moderately), Round (red, moist) Loop Supporting Shaquille: No Collection Device: Two-piece Drainage Description: Liquid, Black, Green Wafer Size: 2 1/4 Moldable Beatriz-Stomal Surrounding Tissue Sensation Description: No Symptoms (patient has no complaints of pain, burning, stinging, or itching from under pouch that is intact and noted without leaks) - Additional Information Additional Information: Script left on chart. Starter kit sent to patient home 01/31/18 via 2 day mail to arrive 02/02/18. Supplies ordered for patient to go home with at discharge.
[2018-02-03] MEDS: KCL 20 mEq/D5W/NaCl 0.9% Inj 1,000 ML IV.CONT SCH ×2 (03:13→21:57)
--- NOTE | 2018-02-03 07:30 | MB ---
cc: Brooklynn Loredo MD DATE: 02/02/2018 CHIEF COMPLAINT: Colon cancer. HISTORY OF PRESENT ILLNESS: Mr. Stapleton is a 67-year-old gentleman with a history of Crohn's disease, who was admitted to the hospital with progressively worsening abdominal pain and was admitted to the hospital on 01/24/2018. Other symptoms included malaise, fatigue, diarrhea, nausea and vomiting, poor oral intake and unintentional weight loss. PAST MEDICAL HISTORY: Crohn's disease. The patient reports that he was diagnosed at the age of 36. He has most recently followed with Dr. Hong. He reported that he had seen Dr. Hong approximately 4 years ago. He has not been following closely. He reports that his Crohn's disease prior to this has been under good control and he has had insurance issues, which has precluded him following up. REVIEW OF SYSTEMS: As above in the HPI. All other review of systems negative. PAST SURGICAL HISTORY: Denies. SOCIAL HISTORY: The patient reports tobacco abuse. He does report occasional alcohol use. He is currently retired. He has a good support system. FAMILY HISTORY: No family history of Crohn's disease. ALLERGIES: NO KNOWN DRUG ALLERGIES. PHYSICAL EXAMINATION: GENERAL: Well-developed, well-nourished man, in no distress. HEENT: Head is normocephalic, atraumatic. Eyes: PERRLA. EOMI. NECK: Supple with no palpable lymphadenopathy. CARDIOVASCULAR: Regular rate and rhythm. No murmurs. RESPIRATORY: Clear to auscultation bilaterally. ABDOMEN: Soft, nontender, with ostomy in place. EXTREMITIES: With no edema. SKIN: With no rashes. NEUROLOGIC: Grossly nonfocal. PSYCHIATRIC: Appropriate mood and affect. IMAGING STUDIES: CT scan of the abdomen and pelvis from 01/23 with nodularity throughout the omentum suggesting omental metastatic disease. The largest nodular mass measures 5.5 x 2 cm and is located centrally. Evidence of possible circumferential mass in the region of the cecum, raising the possibility of colonic neoplasm, Evidence of diffuse colonic wall thickening with loss of prostration, suggesting probable chronic colitis related to inflammatory bowel disease. A 1.6 cm right renal cyst. 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 Tumor size is 6.5 cm, 1.4 cm and 1.1 cm, mucinous adenocarcinoma, grade 3. All 3 tumors invade through the muscularis propria and into the pericolonic tissue. Tumor deposits are present. Regional lymph nodes examined in the right colon were 21 and 3 lymph nodes were involved. Pathologic stage is pT3 N1b M1. The pathologist notes that 3 discrete tumors are present in the clinic specimen. One of the tumors involves the ileocecal valve and cecum and is associated with regional nelda metastasis. The remaining 2 tumors are present in the additional shorter segment of the bowel received, presumably the rectosigmoid colon. Adenomatous mucosa is present at both longitudinal resection margins of the shorter bowel segment. All the tumors are associated with tumor deposits in the pericolonic soft tissue are now arising in the background of Crohn's disease. LABORATORY STUDIES: With white blood cell count 10.3; hemoglobin 11.6; platelet count is 230,000. Chemistry studies with normal total bilirubin. Normal AST and ALT. Total protein and albumin are low at 5.2 and 2.0 respectively. Creatinine is 0.71. 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 Discussed treatment with the patient to include chemotherapy. Discussed chemotherapy with FOLFOX, including administration and side effects. The patient reports that he is amenable to moving forward with colon cancer treatment. He reports that his main goal at this point in time is to get out of the hospital, to get stronger and to get his house cleaned up prior to initiation of chemotherapy. We will have close followup in oncology clinic. Prior to hospital discharge, we will order CT scan of the chest as well as CEA. We will also order labs to check iron profile, ferritin, vitamin B12 and folate. Approximately 4-6 weeks after recovery from surgery, we will plan to initiate discussion and treatment with chemotherapy. The patient is amenable. Inpatient oncology service will continue to follow. MD ANAHI Boo/HARPAL , 07:04 AM , 07:29 AM JOSE
[2018-02-03 08:48] LABS: Anion Gap 10 meq/L (5-15); Blood Urea Nitrogen 9 mg/dL (7-18); Chloride 104 meq/L (98-107); Glomerular Filtration Rate Greater Than 89 mL/min (>89); Glucose,Random 109 mg/dL (74-106); Potassium 3.6 meq/L (3.5-5.1); Sodium 139 meq/L (136-145)
[2018-02-03 08:53] LABS: Phosphorus 2.1 mg/dL (2.5-4.9)
--- NOTE | 2018-02-03 09:20 | CT ---
EXAM DATE: 02/03/2018 8:58 AM EDT AGE/SEX: 67 years / Male INDICATIONS: Colon cancer. Possible metastatic disease. CLINICAL DATA: This is the patient's initial encounter. Patient reports that signs and symptoms have been present for 1 day and indicates a pain score of 0/10. MEDICAL/SURGICAL HISTORY: Crohn's disease. Carcinoma, colon. Colon resection. RADIATION DOSE: 9.35 CTDI (mGy) COMPARISON: [facility], CT ABDOMEN & PELVIS W/O CONTRAST, 01/23/2018. . TECHNIQUE: Multiple contiguous axial images were obtained through the chest without contrast. Image s were obtained in suspended respiration using multiple row detector helical technique. Using automa sharon exposure control and adjustment of the mA and/or kV according to patient size, radiation dose was kept as low as reasonably achievable to obtain optimal diagnostic quality images. DICOM format imag e data is available electronically for review and comparison. FINDINGS: Lungs: There is increased density seen throughout the right lower lobe. There is increased density s een within the bronchus supplying the right lower lobe. There are some minimal suspected atelectasis at the posterior medial left base. Remaining aspects of the lungs are clear. Mediastinum: Normal size lymph nodes are seen. Pleurae: There are minimal bilateral pleural effusions. Axillae: Unremarkable. Bony Structures: Unremarkable. Miscellaneous: The examination was extended to include the upper abdomen, and both adrenal glands ar e normal in size and configuration. The patient does have a mild amount of free intraperitoneal fluid and air. This is seen around the liver. The patient does have new malinda in the midline the abdomen and CONCLUSION: 1. New consolidation or atelectasis in the right lower lobe with increased density within the bronch us supplying the right lower lobe making mucous plugging and atelectasis more likely. This finding wa s not present on the prior CT examination from 01/23/2018. There is also some minimal suspected atelect asis at the posterior medial left lung base. 2. Mild amount of free fluid and pneumoperitoneum. The patient does have new skin malinda over the a bdomen from prior recent abdominal surgery. 3. No pulmonary nodules to suggest metastases. Electronically signed by: Aleksandar Fu MD 02/03/2018 9:19 AM EDT
[2018-02-03] MEDS: Potassium Phos/Sodium Phos 250 MG Tablet PO SCH ×3 (09:54→18:44)
[2018-02-03] MEDS: amLODIPine 5 MG Tablet PO SCH (09:54)
[2018-02-03] MEDS: Pantoprazole Inj 40 MG Vial IV.PUSH SCH (09:54)
[2018-02-03] MEDS: Sucralfate 1 GM Tablet PO SCH ×2 (09:54→18:44)
--- NOTE | 2018-02-03 13:54 | P.PN ---
Subjective Interval history: Follow-up colon cancer. He is doing okay tolerating regular food. Seen by medical oncology. Chest CT was discussed with the patient likely has mucous plugging denies cough and shortness of breath. Physical Exam Vital signs: Vital Signs 02/02/18 20:00 02/02/18 23:00 02/03/18 00:00 Temperature 97.7 F 98.1 F Pulse Rate 87 71 Respiratory Rate 18 17 20 Blood Pressure 148/88 H 157/87 H Pulse Oximetry 94 L 94 L 02/03/18 04:00 02/03/18 07:00 02/03/18 11:00 Temperature 97.6 F 98.0 F 97.4 F L Pulse Rate 69 65 80 Respiratory Rate 18 18 18 Blood Pressure 156/87 H 182/86 H 160/93 H Pulse Oximetry 95 97 93 L Intake & Output 02/02/18 02/03/18 02/03/18 18:59 06:59 18:59 Intake Total 1740 / 1740 1440 / 1440 100 / 100 Output Total 750 / 750 Balance 990 / 990 1440 / 1440 100 / 100 Weight 84.2 kg Intake: IV 1100 / 1100 1200 / 1200 100 / 100 D5W/NS + KCL 20 mEq Inj 1,000 1000 / 1000 1000 / 1000 ML @ 75 mls/hr IV.CONT .[id number] [place] Rx#:[id number] Flagyl 500 MG Inj 100 ML @ 100 100 / 100 200 / 200 100 / 100 mls/hr IV.SIG Q8H [place] Rx#: [id number] Oral 640 / 640 240 / 240 Output: Urine 750 / 750 Other: # Voids 3 Date of Last Bowel Movement 02/02/18 Narrative: GENERAL: This is a thin appearing, well-developed patient, in no apparent distress. SKIN: Warm and dry. CARDIOVASCULAR: Regular rate and rhythm without murmurs, gallops, or rubs. RESPIRATORY: Rhonchi noted right lung. Breath sounds equal bilaterally. GASTROINTESTINAL: Abdomen bowel Sounds hypoactive. Ostomy in place, stoma pink with stool. MUSCULOSKELETAL: Extremities without clubbing, cyanosis, or edema. NEUROLOGICAL: Awake and alert. Oriented to place, person. No focal neuro deficit. Moves all extremities. Normal speech. - Urinary Catheter Management Indwelling Urethral Catheter Cath placed during this visit: yes, but has since been removed by the nurse Reason for continuing: Decision to DC catheter Insertion date: 01/30/18 Insertion time: 08:05 Removal date: 02/01/18 Removal time: 13:30 Results - Labs CBC & Chem 7: 02/02/18 08:15 02/03/18 07:37 Laboratory Results - last 24 hr 02/03/18 07:37 Sodium 139 Potassium 3.6 Chloride 104 Carbon Dioxide 25.0 Anion Gap 10 BUN 9 Creatinine 0.69 Estimated GFR Greater than 89 Random Glucose 109 H Calcium 8.0 L Phosphorus 2.1 L - Imaging Impressions Chest CT 02/03/18 00:00 CONCLUSION: 1. New consolidation or atelectasis in the right lower lobe with increased density within the bronchus supplying the right lower lobe making mucous plugging and atelectasis more likely. This finding was not present on the prior CT examination from 01/23/2018. There is also some minimal suspected atelectasis at the posterior medial left lung base. 2. Mild amount of free fluid and pneumoperitoneum. The patient does have new skin malinda over the abdomen from prior recent abdominal surgery. 3. No pulmonary nodules to suggest metastases. - Procedures 01/26/2018 Colonoscopy to cecum. 8 Colectomy with ileostomy Assessment and Plan - Assessment (1) Colonic mass Code(s): K63.9 - Disease of intestine, unspecified Status: Acute (2) Abdominal pain Code(s): R10.9 - Unspecified abdominal pain Status: Acute Plan: Likely due to 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 Elevated CEA. Continue pain management counseled regarding narcotics Colorectal surgery follow-up (patient does follow with Dr. Hong.) Status post colectomy with right-sided ileostomy on January 30. To follow-up with medical oncology outpatient (3) CD (Crohn's disease) Code(s): K50.90 - Crohn's disease, unspecified, without complications Status: Chronic Plan: Currently stable per patient and his last flare was over 3 years ago. Stable continue to follow with colorectal, DC'd steroids and Flagyl. (4) YVROSE (acute kidney injury) Code(s): N17.9 - Acute kidney failure, unspecified Status: Acute Plan: Patient with acute metabolic acidosis secondary to acute kidney injury, likely due to dehydration renal follow-up appreciated. Continue iv hydration, acidosis appears to have corrected Follow-up labs, avoid nephrotoxic agents. Resolved (5) Dehydration Code(s): E86.0 - Dehydration Status: Acute Plan: Improved. Discontinue IV hydration if tolerating diet and follow-up electrolytes - Plan Dc aníbal PT ff- [facility] DVT proph with scd and early ambulation Discharge Planning: per CRS possibly today or tomorrow
[2018-02-03 15:10] LABS: Magnesium 1.4 mg/dL (1.5-2.5)
[2018-02-03 16:15] LABS: Bilirubin,Urine Negative (Negative); Clarity,Urine Clear (Clear); Color,Urine Yellow (Yellw/Straw); Glucose,Urine (UA) Negative (Negative); Leukocyte Esterase,Urine Trace (Negative); Mucus,Urine Few /lpf (Occasional); Nitrite,Urine Negative (Negative); Specific Gravity,Urine 1.011 (1.002-1.035)
--- NOTE | 2018-02-03 19:12 | P.PNWCN ---
Wound Care Nurse Consult Description: Follow up Consult for Ostomy Management per Dr Alexander Communicated with: Patient and RN Greta Wound/Pressure Injury - Patient Status Premedicated for Pain Prior to Dressing Change: No Incision - Incision Midline Abdomen Other Cover Dressing: abdominal binder in place Bowel Diversion Stoma - Bowel Stoma Right Lower Abdomen Ebatriz-Stomal Surrounding Tissue Sensation Description: No Symptoms Right Upper Abdomen Stoma Edema: Yes (mild) Stoma Appearance: Beefy Red, Protruding, Round Loop Supporting Shaquille: No Collection Device: Two-piece Drainage Description: Liquid, Brown Wafer Size: 2 1/4 Moldable Beatriz-Stomal Skin Appearance: Intact Beatriz-Stomal Surrounding Tissue Sensation Description: No Symptoms - Additional Information Additional Information: Assessed stoma and and pouching system today. pouching system is dry and intact. Stoma is assessed through transparent pouch and is round and red in color.Patient does not have any questions at this time.
[2018-02-03] MEDS ORDERED: Magnesium Oxide 400 MG Tablet PO SCH (21:00)
--- NOTE | 2018-02-03 22:00 | P.PNCS ---
Subjective Interval history: C/R Surg POD afebrile, VSS UO good stoma functioning Objective Vital Signs/Intake & Output: Vital Signs Intake & Output Result Diagrams: 02/02/18 08:15 02/03/18 07:37 Laboratory Results: Laboratory Results - last 24 hr Imaging Studies: Impressions Chest CT 02/03/18 00:00 CONCLUSION: 1. New consolidation or atelectasis in the right lower lobe with increased density within the bronchus supplying the right lower lobe making mucous plugging and atelectasis more likely. This finding was not present on the prior CT examination from 01/23/2018. There is also some minimal suspected atelectasis at the posterior medial left lung base. 2. Mild amount of free fluid and pneumoperitoneum. The patient does have new skin malinda over the abdomen from prior recent abdominal surgery. 3. No pulmonary nodules to suggest metastases. Medications: Active Medications Objective Remarks: PE alert Abd - soft, wound dry, stoma functioning Assessment and Plan - Plan Imp: OOB sips of clears, adv decr IVF resp therapy path reviewed
[2018-02-04 07:42] LABS: Magnesium 1.4 mg/dL (1.5-2.5); Phosphorus 2.5 mg/dL (2.5-4.9)
[2018-02-04 07:50] LABS: Anion Gap 7 meq/L (5-15); Blood Urea Nitrogen 9 mg/dL (7-18); Carbon Dioxide 30.3 meq/L (21.0-32.0); Chloride 104 meq/L (98-107); Glomerular Filtration Rate Greater Than 89 mL/min (>89); Glucose,Random 73 mg/dL (74-106); Potassium 3.2 meq/L (3.5-5.1); Sodium 141 meq/L (136-145)
[2018-02-04] MEDS: amLODIPine 5 MG Tablet PO SCH (08:05)
[2018-02-04] MEDS: Sucralfate 1 GM Tablet PO SCH ×2 (08:05→18:30)
[2018-02-04] MEDS: Potassium Phos/Sodium Phos 250 MG Tablet PO SCH ×3 (08:05→18:31)
[2018-02-04] MEDS: KCL 20 mEq/D5W/NaCl 0.9% Inj 1,000 ML IV.CONT SCH ×2 (08:08→20:59)
[2018-02-04] MEDS ORDERED: Magnesium Oxide 400 MG Tablet PO SCH (10:30)
--- NOTE | 2018-02-04 12:20 | P.PNWCN ---
Wound Care Nurse Consult Description: Follow up Consult for Ostomy Management per Dr Alexander Communicated with: Patient Recommendation: Assess stoma for red/pink color, moisture and output. Empty pouch when 1/3-1/2 full. Change wafer and pouching system Q3-5 days and PRN for leaks. Additional information: Patient seen on for ostomy assessment, teaching, and pouching system change with demonstration. Incision - Incision Midline Abdomen Other Cover Dressing: abdominal binder soiled and removed for ostomy appliance change Bowel Diversion Stoma - Bowel Stoma Right Upper Abdomen Stoma Diameter: 38 (mm) Stoma Appearance: Protruding (moderately), Round (red, moist, functioning) Collection Device: Two-piece (with low pressure adaptor applied), Moldable Wafer Drainage Description: Soft, Liquid, Brown Wafer Size: 2 1/4 Moldable Stoma Care: Pouch and Wafer Changed Beatriz-Stomal Skin Appearance: Intact (unremarkable) Beatriz-Stomal Surrounding Tissue Sensation Description: No Symptoms
--- NOTE | 2018-02-04 15:08 | P.DS ---
Date of admission: 01/24/18 00:47 Primary care physician: No Primary Care Physician Brief History from admission: Patient is a 67-year-old gentleman with a history of Crohn's disease which has been in remission. He presents with 2 weeks of malaise, associated diarrhea nausea and vomiting. He had poor oral intake and noted about a 5-10 pound weight loss in the last 2 weeks with associated abdominal bloating, increased nausea vomiting and belching. He notes no bloody diarrhea. He has not had any issues with the Crohn's in about 3 years although he follows up with his colorectal team sporadically due to remission of disease. He was going to see his surgeon but felt severely dehydrated and dizzy and confused and came to the emergency room by ambulance yesterday. He is found to have acute kidney injury , acidosis and was given hydration early. 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 This is all new for the patient he is admitted to the hospital for further evaluation and treat DS: Diagnosis - Discharge Diagnosis (1) Colonic mass Status: Acute (2) Abdominal pain Status: Acute (3) CD (Crohn's disease) Status: Chronic (4) YVROSE (acute kidney injury) Status: Acute (5) Dehydration Status: Acute DS: Medications - Discharge Medications Prescriptions: albuterol sulfate [Ventolin HFA] 2 puff INH Q4H PRN #1 g PRN Reason: Shortness Of Breath/Wheezing amlodipine [Norvasc] 5 mg PO DAILY #30 tab oxycodone-acetaminophen 1 tab PO Q4H PRN #18 tab PRN Reason: Acute Pain DS: Summary Hospital Course: (1) Colonic mass Code(s): K63.9 - Disease of intestine, unspecified Status: Acute Path with adenocarcinoma (2) Abdominal pain Code(s): R10.9 - Unspecified abdominal pain Status: Acute Plan: Likely due to 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 Elevated CEA. Continue pain management counseled regarding narcotics Colorectal surgery follow-up (patient does follow with Dr. Hong.) Status post colectomy with right-sided ileostomy on January 30. To follow-up with medical oncology outpatient (3) CD (Crohn's disease) Code(s): K50.90 - Crohn's disease, unspecified, without complications Status: Chronic Plan: Currently stable per patient and his last flare was over 3 years ago. Stable continue to follow with colorectal, DC'd steroids and Flagyl. (4) YVROSE (acute kidney injury) Code(s): N17.9 - Acute kidney failure, unspecified Status: Acute Plan: Patient with acute metabolic acidosis secondary to acute kidney injury, likely due to dehydration renal follow-up appreciated. Continue iv hydration, acidosis appears to have corrected Follow-up labs, avoid nephrotoxic agents. Resolved (5) Dehydration Code(s): E86.0 - Dehydration Status: Acute Plan: Improved. Discontinue IV hydration if tolerating diet and follow-up electrolytes - Plan Dc aníbal PT ff- C DVT proph with scd and early ambulation - Time Spent with Patient Total time spent providing and/or coordinating discharge services: - Quality: VTE Deep Vein Thrombosis/Pulmonary Embolism Present on Admission: No Exam Vital signs: Vital Signs 02/03/18 17:00 02/03/18 17:13 02/03/18 20:00 Temperature 97.7 F 97.2 F L Pulse Rate 75 74 81 Respiratory Rate 20 17 18 Blood Pressure 163/89 H 129/77 Pulse Oximetry 97 96 02/03/18 20:25 02/04/18 00:00 02/04/18 03:00 Temperature 97.7 F Pulse Rate 83 83 Respiratory Rate 16 18 18 Blood Pressure 133/80 Pulse Oximetry 94 L 94 L 02/04/18 05:30 02/04/18 08:00 02/04/18 12:21 Temperature 98.1 F Pulse Rate 69 81 Respiratory Rate 16 18 18 Blood Pressure 122/67 Pulse Oximetry 96 Intake & Output 02/03/18 02/04/18 02/04/18 18:59 06:59 18:59 Intake Total 820 / 820 360 / 360 Balance 820 / 820 360 / 360 Weight 79.9 kg Intake: IV 100 / 100 Flagyl 500 MG Inj 100 ML @ 100 100 / 100 mls/hr IV.SIG Q8H [place] Rx#: [id number] Oral 720 / 720 360 / 360 Other: # Voids 4 2 Narrative: GENERAL: This is a thin appearing, well-developed patient, in no apparent distress. SKIN: Warm and dry. CARDIOVASCULAR: Regular rate and rhythm without murmurs, gallops, or rubs. RESPIRATORY: Rhonchi noted right lung. Breath sounds equal bilaterally. GASTROINTESTINAL: Abdomen bowel Sounds hypoactive. Ostomy in place, stoma pink with stool. MUSCULOSKELETAL: Extremities without clubbing, cyanosis, or edema. NEUROLOGICAL: Awake and alert. Oriented to place, person. No focal neuro deficit. Moves all extremities. Normal speech. Results Procedures completed during hospitalization: 01/26/2018 Colonoscopy to cecum. 7-8 Colectomy with ileostomy Labs on day of discharge: Labs from last 24 hours 02/04/18 02/04/18 02/03/18 05:58 05:53 15:50 Sodium 141 Potassium 3.2 L Chloride 104 Carbon Dioxide 30.3 Anion Gap 7 BUN 9 Creatinine 0.78 Estimated GFR Greater than 89 Random Glucose 73 L Calcium 8.0 L Phosphorus 2.5 Magnesium 1.4 L Urine Color Yellow Urine Clarity Clear Urine pH 6.0 Ur Specific [place] 1.011 Urine Protein Negative Urine Glucose (UA) Negative Urine Ketones Negative Urine Occult Blood Negative Urine Nitrate Negative Urine Bilirubin Negative Urine Urobilinogen Less than 2 Ur Leukocyte Esterase Trace H Urine RBC Less than 1 Urine WBC 2 Urine Mucus Few H Micro UA Comment Culture not ind Urine Culture Comments Culture not ind 02/03/18 07:37 Sodium Potassium Chloride Carbon Dioxide Anion Gap BUN Creatinine Estimated GFR Random Glucose Calcium Phosphorus Magnesium 1.4 L Urine Color Urine Clarity Urine pH Ur Specific [place] Urine Protein Urine Glucose (UA) Urine Ketones Urine Occult Blood Urine Nitrate Urine Bilirubin Urine Urobilinogen Ur Leukocyte Esterase Urine RBC Urine WBC Urine Mucus Micro UA Comment Urine Culture Comments - Impressions ITS Impressions Abdomen/Pelvis CT 01/23/18 20:12 CONCLUSION: 1. 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 The largest nodular mass measures 5.5 x 2.0 cm and is located centrally. 2. Evidence of possible circumferential mass in the region of the cecum raising the possibility of colonic neoplasm. Colonoscopy is recommended for further evaluation of this finding. 3. Evidence of diffuse colonic wall thickening with loss of haustrations suggesting probable chronic colitis related to inflammatory bowel disease. Differential diagnosis includes ulcerative colitis and Crohn's disease. 4. 1.6 cm right renal cyst. 5. Degenerative changes and scoliosis of the thoracolumbar spine. Abdomen X-Ray 01/28/18 00:00 CONCLUSION: Multiple air-filled dilated loops of small bowel are noted suggesting small bowel obstruction versus ileus. Clinical correlation is recommended. Chest CT 02/03/18 00:00 CONCLUSION: 1. New consolidation or atelectasis in the right lower lobe with increased density within the bronchus supplying the right lower lobe making mucous plugging and atelectasis more likely. This finding was not present on the prior CT examination from 01/23/2018. There is also some minimal suspected atelectasis at the posterior medial left lung base. 2. Mild amount of free fluid and pneumoperitoneum. The patient does have new skin malinda over the abdomen from prior recent abdominal surgery. 3. No pulmonary nodules to suggest metastases. Discharge Plan - Discharge Disposition Patient Disposition: W/Home Health Service - Discharge Condition Condition: Stable - Discharge Order Discharge Orders: Discharge Order (Routine); Ordered 02/04/18 Ordered By: Joe Woodson Consult Other Clear for Discharge (Routine); Ordered 02/04/18 Ordered By: Zelalem Alexander - Physicians Team Primary Care Provider: Primary Care Shari Benavides Attending Provider: Joe Woodson Other Providers: Shauna De Anda MD ; Neymar Hong MD ; Brooklynn Loredo
--- NOTE | 2018-02-04 17:47 | P.PNONC ---
Subjective Interval history: Resting comfortably in bed in no distress Objective Vital Signs/Intake & Output: Vital Signs 02/03/18 20:00 02/03/18 20:25 02/04/18 00:00 Temperature 97.2 F L 97.7 F Pulse Rate 81 83 83 Respiratory Rate 18 16 18 Blood Pressure 129/77 133/80 Pulse Oximetry 96 94 L 94 L 02/04/18 03:00 02/04/18 05:30 02/04/18 08:00 Temperature 98.1 F Pulse Rate 69 Respiratory Rate 18 16 18 Blood Pressure 122/67 Pulse Oximetry 96 02/04/18 12:21 02/04/18 16:00 Temperature 98.3 F Pulse Rate 81 91 H Respiratory Rate 18 18 Blood Pressure 132/79 Pulse Oximetry 95 Intake & Output 02/03/18 02/04/18 02/04/18 18:59 06:59 18:59 Intake Total 820 / 820 360 / 360 760 / 760 Balance 820 / 820 360 / 360 760 / 760 Weight 79.9 kg Intake: IV 100 / 100 Flagyl 500 MG Inj 100 ML @ 100 100 / 100 mls/hr IV.SIG Q8H [place] Rx#: [id number] Oral 720 / 720 360 / 360 760 / 760 Other: # Voids 4 2 4 Result Diagrams: 02/02/18 08:15 02/04/18 05:53 Laboratory Results: Laboratory Results - last 24 hr 02/04/18 02/04/18 05:53 05:58 Sodium 141 Potassium 3.2 L Chloride 104 Carbon Dioxide 30.3 Anion Gap 7 BUN 9 Creatinine 0.78 Estimated GFR Greater than 89 Random Glucose 73 L Calcium 8.0 L Phosphorus 2.5 Magnesium 1.4 L Medications: Active Medications Generic Name Dose Route Start Last Admin Trade Name Freq PRN Reason Stop Dose Admin Albuterol 2.5 mg 02/03/18 16:00 02/04/18 15:51 Albuterol Neb (Ary) NEB Not Given QID NEB ARY Amlodipine Besylate 5 mg 01/31/18 15:30 02/04/18 08:05 Norvasc PO 5 mg DAILY ARY Administration Clonidine HCl 0.1 mg 01/29/18 13:31 01/31/18 11:35 Catapres PO 0.1 mg Q6H PRN Administration SEE LABEL COMMENTS Morphine Sulfate 30 mg in 30 mls @ 0 mls/hr 01/30/18 10:27 02/01/18 14:41 Morphine Inj [employer] 0 mls/hr UNSCH PRN Administration per [employer] parameters 0 MG/HR Potassium Chloride/Dextrose/Sod Cl 1,000 mls @ 75 mls/hr 01/31/18 06:45 02/04 08:08 D5w/Ns + Kcl 20 Meq Inj IV.CONT Not Given .[id number] ARY Magnesium Oxide 400 mg 02/04/18 10:30 02/04/18 12:05 Mag-Ox PO 400 mg BID ARY Administration Oxycodone/Acetaminophen 1 tab 01/30/18 10:07 02/03/18 21:19 Percocet 5/325 Mg PO 1 tab Q4H PRN Administration PAIN SCALE 1 TO 5 Pantoprazole Sodium 40 mg 02/04/18 09:00 02/04/18 08:05 Protonix PO 40 mg DAILY ARY Administration Potassium Phos/Sodium Phos 250 mg 02/02/18 13:00 02/04/18 12:05 K-Phos Neutral PO 250 mg TID ARY Administration Sodium Chloride 2 ml 01/30/18 21:00 02/04/18 08:08 Ns Flush IV.FLUSH Not Given BID ARY Sodium Chloride 2 ml 02/03/18 21:00 02/04/18 08:06 Ns Flush IV.FLUSH 2 ml BID ARY Administration Sucralfate 1 gm 02/02/18 11:00 02/04/18 08:05 Carafate PO 1 gm BIDAC ARY Administration Objective Remarks: GENERAL: Well-nourished, well-developed patient. HEAD: Normocephalic. EYES: No scleral icterus. No injection or drainage. . RESPIRATORY: No accessory muscle use. GASTROINTESTINAL: protuberant abdomen EXTREMITIES: No cyanosis, or edema. MUSCULOSKELETAL: Adequate muscle tone. NEUROLOGICAL: Awake, alert, and oriented x3. PSYCHIATRIC: Appropriate mood and affect; insight and judgment normal. 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 Disease is not resectable with surgery team reporting diffuse omental caking. Will plan to intiate chemotherapy in the upcoming 6 weeks outpatient after he has healed from his recent surgery. Discussed with patient and he is amenable. He understands that his disease is not curable and all treatments will be palliative in nature with the goal of improving symtposm and quality of life. Will have close follow up in oncology clinic on discharge.
--- NOTE | 2018-02-04 23:34 | P.PNCS ---
Subjective Interval history: C/R Surg POD #5 afebrile, VSS UO good stoma functioning Objective Vital Signs/Intake & Output: Vital Signs Intake & Output Result Diagrams: 02/02/18 08:15 02/04/18 05:53 Laboratory Results: Laboratory Results - last 24 hr Medications: Active Medications Objective Remarks: PE alert Abd - soft, wound clean, stoma pouched well Assessment and Plan - Plan Imp: OOB reg diet decr IVF resp therapy path reviewed hold PO magnesium due to stoma
[2018-02-05] MEDS: Potassium Phos/Sodium Phos 250 MG Tablet PO SCH (09:15)
[2018-02-05] MEDS: amLODIPine 5 MG Tablet PO SCH (09:16)
== END 2018-02-05 10:55 | disposition home health service (06) ==
LOC: PHED 19:58 → PHEDA 01-24 00:47 → PH3 01-24 02:50 → NEPHCDU 01-25 18:02 → N06 01-26 16:35 → HCPC 01-30 13:22 → N07 02-01 09:54
PROVIDERS: ADMIT Internal Medicine; ATTEND Internal Medicine
PROC: COLONOS (2018-01-26 15:09)